=== PATIENT | female | born 1990 | race African-American/Black ===

== ENCOUNTER 2016-11-26 11:28 | Emergency (ER) | payer OTHER ==
[2016-11-26 13:02] LABS: MEAN CORPUSCULAR HEMOGLOBIN 26.8 pg (27.0-33.0); MEAN CORPUSCULAR HGB CONC 32.7 g/dl (32.0-36.5); MEAN CORPUSCULAR VOLUME 81.9 fl (80.0-96.0); RED CELL DISTRIBUTION WIDTH 13.6 % (11.5-14.5); WHITE BLOOD COUNT 13.6 K/mm3 (4.0-10.0)
--- NOTE | 2016-11-26 15:13 | REP ---
EMERGENCY FIRST TRIMESTER OBSTETRIC SONOGRAPHY: HISTORY: Vaginal bleeding. Cramping. No comparison study. FINDINGS: Transabdominal and transvaginal scanning are performed. Uterine dimensions are 9.0 x 4.9 x 5.4 cm. The uterus is retroverted. There is a tiny somewhat elongate 2.8 mm fluid structure in the endometrium. No normal gestational sac is seen. A 2.8 mm mean sac size dimension would correlate with a 7-yedf-9-day gestational age estimate. This is not likely to be a gestational sac. A normal right ovary is seen measuring 3.7 x 2.6 x 2.8 cm. Its Doppler flow is normal with resistive index 0.42. Left ovary measures 3.9 x 2.5 x 3.5 cm. Its Doppler flow is normal with resistive index 0.46. There is a 1.6 x 1.7 x 1.6 cm hemorrhagic corpus luteum cyst in the left ovary. A trace of fluid is seen in the cul-de-sac. No adnexal mass is seen. No sonographic evidence of hemoperitoneum seen. IMPRESSION: Nonspecific sonographic findings: No definite intrauterine gestational sac. No adnexal mass or significant free fluid seen. Clinical and possibly sonographic followup advised. Signed by Cody Aleman MD 11/26/2016 04:32 P
[2016-11-26] MEDS ORDERED: ACETAMINOPHEN 325 MG TAB As Ordered ONE (15:17)
[2016-11-26] MEDS ORDERED: METOCLOPRAMIDE INJ 10MG/2ML VIAL (J2765) As Ordered ONE (15:17)
[2016-11-26 15:39] LABS: ALBUMIN 3.6 GM/DL (3.2-5.2); ALBUMIN/GLOBULIN RATIO 0.82 (1.00-1.93); ALKALINE PHOSPHATASE 80 U/L (45-117); ALT/SGPT 30 U/L (12-78); ANION GAP 9 MEQ/L (8-16); AST/SGOT 18 U/L (15-37); BILIRUBIN,TOTAL 0.3 MG/DL (0.2-1.0); BLOOD UREA NITROGEN 8 MG/DL (7-18); CARBON DIOXIDE LEVEL 25 MEQ/L (21-32); CHLORIDE LEVEL 104 MEQ/L (98-107); CREATININE FOR GFR 0.83 MG/DL (0.55-1.02); GLOMERULAR FILTRATION RATE > 60.0 (>60); GLUCOSE, FASTING 86 MG/DL (70-105); POTASSIUM SERUM 3.8 MEQ/L (3.5-5.1); SODIUM LEVEL 138 MEQ/L (136-145)
[2016-11-26] MEDS ORDERED: NITROFURANTOIN (MACROBID) 100 MG CAP As Ordered ONE (16:58)
--- NOTE | 2016-11-26 17:05 | EDDOCDS ---
Physician Documentation [facility] Name: Saundra Garcia Age: 26 yrs Sex: Female : 1990 Arrival Date: 11/26/2016 Time: 11:28 Bed I4 / M4 Private MD: Madalyn [facility] [place] [facility] [place] Disposition: 11/26/16 16:57 Discharged to Home/Self Care. Impression: Encounter for test, result positive - HCG Serum Quantitative 382, no U/S evidence of , Urinary tract infection, site not specified. - Condition is Stable. - Discharge Instructions: Medicines During , and Urinary Tract Infection. - Prescriptions for Reglan 10 mg Oral Tablet - take 1 tablet by ORAL route every 6 hours take 30 minutes before meals and at bedtime; 20 tablet. Tylenol 325 mg Oral Tablet - take 2 tablets by ORAL route every 6 hours as needed; 30 tablet. Macrobid 100 mg Oral Capsule - take 100 milligram by ORAL route every 12 hours for 10 days; 20 capsule. - Medication Reconciliation, Local Pharmacy Hours form. - Follow up: OB [place]; When: 1 - 2 days; Reason: Further diagnostic work-up, Recheck today's complaints, Continuance of care. Follow up: Emergency Department; Reason: Worsening of conditions. - Problem is new. - Symptoms have improved. Historical: - Allergies: no known allergies; - Home Meds: 1. none - PMHx: none; - PSHx: ; - Social history: Smoking status: Patient states was never smoker of tobacco. No barriers to communication noted, The patient speaks fluent Palestinian, Speaks appropriately for age. - Family history: Not pertinent. - : The pt / caregiver states he / she is not on anticoagulants. Home medication list is obtained from the patient. - Exposure Risk Screening:: None identified. 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 3 in. (160.02 cm); Pain 7/10; 16:59 BP 134 / 70; Pulse 94; Resp 18; Temp 98.7; Pulse Ox 100% ; Pain 0/10; jam1 11:30 Body Mass Index 43.75 (112.04 kg, 160.02 cm) cmb MDM: 11:49 Type & Screen Ordered. EDMS 11:49 Hcg, Serum Quantitative Ordered. EDMS 11:49 CBC Ordered. EDMS 13:43 CBC Reviewed. ef1 13:43 Type & Screen Reviewed. ef1 13:43 Hcg, Serum Quantitative Reviewed. ef1 13:52 IV Saline Lock ordered. ef1 13:52 NS 0.9% 1000 ml IV at bolus once ordered. ef1 13:52 Metoclopramide 10 mg IV at 40 mg/hr once over 15 mins ordered. ef1 13:52 Strep Screen, Nursing ordered. ef1 13:52 Obtain sample by nasopharyngeal swab ordered. ef1 13:52 Acetaminophen Tablet 975 mg PO once ordered. ef1 13:53 Complete Comphrensive Metabolic Ordered. EDMS 13:53 -Influenza A&B Rapid Antigen - Nose Ordered. EDMS 13:53 UA Ordered. EDMS 13:53 Urine Culture Ordered. EDMS 13:59 -Blood Culture (Adults Only), peripheral from different site, or from device/port/PICC ef1 etc. if present ordered. 14:00 Lactic Acid (Squires tube on ice) Ordered. EDMS 14:00 -Blood Culture Ordered. EDMS 14:00 Ultrasound 1st Trimester Ordered. EDMS 14:09 BLOOD CULTURES Ordered. EDMS 14:44 TRANSVAGINAL US Ordered. EDMS 14:44 DUPLEX SCAN LIMITED (DOPPLER) Ordered. EDMS 15:12 -Blood Culture (Adults Only), peripheral from different site, or from device/port/PICC srm etc. if present complete. 15:14 UA Reviewed. ef1 15:14 Type & Screen Reviewed. ef1 15:14 GATS (NEGATIVE STREP SCREEN) Ordered. EDMS 16:01 Financial registration complete. zo 16:16 [facility] [place] Payment Agreement was scanned into [employer] and attached to record. zo 16:53 Complete Comphrensive Metabolic Reviewed. ef1 16:53 -Influenza A&B Rapid Antigen - Nose Reviewed. ef1 16:53 Lactic Acid (Squires tube on ice) Reviewed. ef1 16:53 Ultrasound 1st Trimester Reviewed. ef1 16:54 Nitrofurantoin 100 mg PO once ordered. ef1 Administered Medications: 15:22 Drug: Metoclopramide 10 mg [metoclopramide 5 mg/mL injection solution] Route: IV; Rate: srm 40 mg/hr; Infused Over: 15 mins; Site: right antecubital; 15:49 Follow up: IV Status: Completed infusion ms18 15:22 Drug: Acetaminophen 975 mg [acetaminophen 325 mg tablet (3 tabs)] Route: PO; srm 15:23 Drug: NS 0.9% 1000 ml [sodium chloride 0.9 % intravenous solution] Route: IV; Rate: srm bolus; Site: right antecubital; 17:02 Drug: Nitrofurantoin 100 mg [nitrofurantoin macrocrystal 50 mg capsule (2 caps)] Route: srm PO; Signatures: Dispatcher [employer] EDMS Lbira Amanda RN RN srm Chela Jean Baptiste Erica, PA-C PA-C ef1 Susan Cadena RN RN ead Smith, Mallory RN ms18 The chart was reviewed and I authenticate all verbal orders and agree with the evaluation and treatment provided.Corrections: (The following items were deleted from the chart) 14:02 13:53 US PELVIC NON-OB COMPLETE+US ordered. EDMS EDMS 14:02 13:53 DUPLEX SCAN LIMITED (DOPPLER)+US ordered. EDMS EDMS Attachments: 16:16 [facility] [place] Payment Agreement zo MTDD
--- NOTE | 2016-11-26 17:05 | EDDOCDS ---
Nurse's Notes [facility] Name: Saundra Garcia Age: 26 yrs Sex: Female : 1990 Arrival Date: 11/26/2016 Time: 11:28 Bed I4 / M4 Private MD: MEREDITH Bergman Diagnosis: Encounter for test, result positive-HCG Serum Quantitative 382, no U/S evidence of ;Urinary tract infection, site not specified Presentation: 11/26 11:38 Presenting complaint: Patient states: Pt reports she just found out she is 8 weeks ead on Friday. Reports onset of spotting at 0630 this morning. Pt reports upper abdominal pain. Risk factors: The patient reports no loss of conciousness prior to arrival. This patient has not had a hysterectomy. This patient has not begun menopause. Adult Sepsis Screening: The patient does not have new or worsening altered mentation. Patient's respiratory rate is less than 22. Systolic blood pressure is greater than 100. Patient has a qSOFA score of 0- Negative Sepsis Screen. Suicide/Homicide risk assessment- the patient denies having any suicidal and/or homicidal ideations and does not present with any other emotional, behavioral or mental health complaints. Status: The patient is a dependent. Transition of care: patient was not received from another setting of care. 11:38 Acuity: CECILY Level 3 ead 11:38 Method Of Arrival: Walkin/Carried/Asstd ead Triage Assessment: 11:39 General: Appears in no apparent distress, comfortable, Behavior is appropriate for age, ead cooperative. Pain: Location: epigastric area and suprapubic area. Neurological: No deficits noted. Respiratory: Airway is patent Respiratory effort is even, unlabored. GI: Reports lower abdominal pain, upper abd pain, Denies nausea, vomiting. : Reports vaginal bleeding that is spotty since 0630 this morning. Derm: Skin is dry, Skin is normal. 11:41 Pt Declines HIV testing. 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 none - PMHx: none; - PSHx: ; - Social history: Smoking status: Patient states was never smoker of tobacco. No barriers to communication noted, The patient speaks fluent Lao, Speaks appropriately for age. - Family history: Not pertinent. - : The pt / caregiver states he / she is not on anticoagulants. Home medication list is obtained from the patient. - Exposure Risk Screening:: None identified. Screenin:23 Screening information is obtained from the patient. Fall risk: No risks identified. srm Assistance ADL's: requires no assistance with activities of daily living. Abuse/DV Screen: The patient / caregiver reports he/she is: not in a situation that causes fear, pain or injury. Nutritional screening: No deficits noted. Advance Directives: There is no active DNR order. home support is adequate. Assessment: 15:23 General: Appears in no apparent distress, Behavior is appropriate for age, cooperative. srm Neurological: No deficits noted. EENT: No deficits noted. Respiratory: No deficits noted. : Reports vaginal bleeding that is spotty. Derm: No deficits noted. 15:50 General: Appears in no apparent distress, comfortable, obese, Behavior is appropriate ms18 for age, cooperative, quiet, Pt in no acute distress. VSS. PT resting on stretcher with son at this time. Will continue to monitor pt. . Respiratory: No deficits noted. Derm: Skin is pink, warm & dry. normal. 17:03 General: Appears in no apparent distress, Behavior is appropriate for age, cooperative. srm Neurological: No deficits noted. EENT: No deficits noted. Cardiovascular: No deficits noted. Respiratory: No deficits noted. GI: No deficits noted. Musculoskeletal: No deficits noted. Vital Signs: 11:30 BP 155 / 73; Pulse 115; Resp 18; Temp 99.2(O); Pulse Ox 98% ; Weight 112.04 kg (M); cmb Height 5 ft. 3 in. (160.02 cm); Pain 7/10; 16:59 BP 134 / 70; Pulse 94; Resp 18; Temp 98.7; Pulse Ox 100% ; Pain 0/10; jam1 11:30 Body Mass Index 43.75 (112.04 kg, 160.02 cm) cmb Vitals: 11:30 Log In Time: November 26, 2016 at 11:28. cmb 15:13 Strep Screen is obtained and tested: Negative, a GATSNEG culture is ordered in [facility] and sent. ED Course: 11:29 Patient visited by Susanna Fisher. cmb 11:29 Patient moved to Waiting cmb 11:30 Madalyn [facility] [place] is Private Physician. cmb 11:31 Patient moved to Pre RCE cmb 11:39 Triage Initiated ead 12:46 Patient moved to Triage 3 ct3 12:52 CBC Sent. ct3 12:52 Hcg, Serum Quantitative Sent. ct3 12:52 Type & Screen Sent. ct3 13:38 Jazmin Stallworth PA-C is PHCP. ef1 13:38 Beatrice Fall MD is Attending Physician. ef1 13:39 Patient visited by Jazmin Stallworth PA-C. ef1 13:56 Patient moved to I4 / M4 ead 13:57 Patient visited by Jazmin Stallworth PA-C. ef1 14:18 Patient moved to Ultrasound br3 14:41 Patient moved to I4 / M4 br3 15:01 Patient visited by Jazmin Stallworth PA-C. ef1 15:06 Pt greeted and oriented to ED. Patient advised of names of staff involved in care, jam1 location of call ring, wait times and NPO status. Patient has correct armband on for positive identification. Bed in low position. Call light in reach. Side rails up X 1. Door closed. 15:12 BLOOD CULTURES Sent. srm 15:12 Lactic Acid (Squires tube on ice) Sent. srm 15:12 -Blood Culture Sent. srm 15:12 -Influenza A&B Rapid Antigen - Nose Sent. srm 15:12 Complete Comphrensive Metabolic Sent. srm 15:13 The patient / caregiver is instructed regarding the plan of care and ED course. srm Accompanied by Family Member, Patient has correct armband on for positive identification. Bed in low position. Call light in reach. 15:13 Inserted saline lock: 20 gauge in right antecubital area and blood collected. srm 15:14 Patient visited by Jazmin Stallworth PA-C. ef1 15:24 Patient visited by Libra Amanda, ZOYA. srm 15:49 Patient visited by Bhavana Romo,ZOYA. ms18 15:52 Ultrasound 1st Trimester Returned. EDMS 16:16 [facility] Payment Agreement was scanned into [employer] and attached to record. zo 16:21 Patient name changed from Lakresha\S\\S\Miles\S\ to Ajresha\S\ \S\Miles. EDMS 16:45 Patient visited by Bhavana Romo RN. ms18 16:57 Jesse Gomez, OB is Referral Physician. ef1 17:03 Discontinued lock intact, bleeding controlled, pressure dressing applied, No srm redness/swelling at site. No procedures done that require assistance. Administered Medications: 15:22 Drug: Metoclopramide 10 mg [metoclopramide 5 mg/mL injection solution] Route: IV; Rate: srm 40 mg/hr; Infused Over: 15 mins; Site: right antecubital; 15:49 Follow up: IV Status: Completed infusion ms18 15:22 Drug: Acetaminophen 975 mg [acetaminophen 325 mg tablet (3 tabs)] Route: PO; srm 15:23 Drug: NS 0.9% 1000 ml [sodium chloride 0.9 % intravenous solution] Route: IV; Rate: srm bolus; Site: right antecubital; 17:02 Drug: Nitrofurantoin 100 mg [nitrofurantoin macrocrystal 50 mg capsule (2 caps)] Route: srm PO; Intake: 17:03 IV: 1000.00ml (NS); Total: 1000.00ml. srm Order Results: Lab Order: Type & Screen; SPEC'M 11/26/16 12:52 Test: BLOOD TYPE; Value: AB POS; Status: F Test: AB SCREEN (INDIRECT CARLEY)GEL; Value: NEGATIVE; Status: F Lab Order: Hcg, Serum Quantitative; SPEC'M 11/26/16 12:52 Test: HCG, SERUM QUANTITATIVE; Value: 382; Units: MIU/ML; Status: F Test Note: ; GESTATIONAL AGE APPROXIMATE HCG RANGE (MIU/ML) 0.2-1 WEEK 5-50 1-2 WEEKS 50-500 2-3 WEEKS 100-5,000 3-4 WEEKS 500-10,000 4-5 WEEKS 1,000-50,000 5-6 WEEKS 10,000-100,000 6-8 WEEKS 15,000-200,000 2-3 MONTHS 10,000-100,000 NON FEMALES LESS THAN 3.0 Patient samples may contain human heterophilic antibodies that could react with immunoassays to give falsely elevated or depressed results. This assay has been designed to minimize interference from heterophilic antibodies. Elevated hCG levels have also been associated with trophoblastic disease and nontrophoblastic neoplasms. The possibility of having these diseases should be considered before a diagnosis of is made. This test is not intended for use as a surrogate marker for aiding in the diagnosis or monitoring the treatment of cancer patients. [employer] [place] methodology. Lab Order: CBC; SPEC'M 11/26/16 12:52 Test: WHITE BLOOD COUNT; Value: 13.6; Range: 4.0-10.0; Abnormal: Above high normal; Units: K/mm3; Status: F Test: RED BLOOD COUNT; Value: 4.74; Range: 4.00-5.40; Units: M/mm3; Status: F Test: HEMOGLOBIN; Value: 12.7; Range: 12.0-16.0; Units: g/dl; Status: F Test: HEMATOCRIT; Value: 38.8; Range: 36.0-47.0; Units: %; Status: F Test: MEAN CORPUSCULAR VOLUME; Value: 81.9; Range: 80.0-96.0; Units: fl; Status: F Test: MEAN CORPUSCULAR HEMOGLOBIN; Value: 26.8; Range: 27.0-33.0; Abnormal: Below low normal; Units: pg; Status: F Test: MEAN CORPUSCULAR HGB CONC; Value: 32.7; Range: 32.0-36.5; Units: g/dl; Status: F Test: RED CELL DISTRIBUTION WIDTH; Value: 13.6; Range: 11.5-14.5; Units: %; Status: F Test: PLATELET COUNT, AUTOMATED; Value: 307; Range: 150-450; Units: k/mm3; Status: F Lab Order: Complete Comphrensive Metabolic; SPEC'M 11/26/16 15:04 Test: GLUCOSE, FASTING; Value: 86; Range: 70-105; Units: MG/DL; Status: F Test: BLOOD UREA NITROGEN; Value: 8; Range: 7-18; Units: MG/DL; Status: F Test: CREATININE FOR GFR; Value: 0.83; Range: 0.55-1.02; Units: MG/DL; Status: F Test: GLOMERULAR FILTRATION RATE; Value: > 60.0; Range: >60; Status: F Test: SODIUM LEVEL; Value: 138; Range: 136-145; Units: MEQ/L; Status: F Test: POTASSIUM SERUM; Value: 3.8; Range: 3.5-5.1; Units: MEQ/L; Status: F Test: CHLORIDE LEVEL; Value: 104; Range: 98-107; Units: MEQ/L; Status: F Test: CARBON DIOXIDE LEVEL; Value: 25; Range: 21-32; Units: MEQ/L; Status: F Test: ANION GAP; Value: 9; Range: 8-16; Units: MEQ/L; Status: F Test: CALCIUM LEVEL; Value: 9.0; Range: 8.5-10.1; Units: MG/DL; Status: F Test: AST/SGOT; Value: 18; Range: 15-37; Units: U/L; Status: F Test: ALT/SGPT; Value: 30; Range: 12-78; Units: U/L; Status: F Test: ALKALINE PHOSPHATASE; Value: 80; Range: 45-117; Units: U/L; Status: F Test: BILIRUBIN,TOTAL; Value: 0.3; Range: 0.2-1.0; Units: MG/DL; Status: F Test: TOTAL PROTEIN; Value: 8.0; Range: 6.4-8.2; Units: GM/DL; Status: F Test: ALBUMIN; Value: 3.6; Range: 3.2-5.2; Units: GM/DL; Status: F Test: ALBUMIN/GLOBULIN RATIO; Value: 0.82; Range: 1.00-1.93; Abnormal: Below low normal; Status: F Test Note: ; Units are mL/min/1.73 m2 Chronic Kidney Disease Staging per NKF: Stage I & II GFR >=60 Normal to Mildly Decreased Stage III GFR 30-59 Moderately Decreased Stage IV GFR 15-29 Severely Decreased Stage V GFR <15 Very Little GFR Left ESRD GFR <15 on TRAINING AND DEVELOPMENT OFFICER Lab Order: -Influenza A&B Rapid Antigen - Nose; SPEC'M 11/26/16 15:04 Test: INFLUENZA A RAPID SCR by ICA; Value: INFLUENZA A RESULTS NEGATIVE; Status: F Test: INFLUENZA A RAPID SCR by ICA; Value: Comments:; Status: F Test: INFLUENZA B RAPID SCR by ICA; Value: INFLUENZA B RESULTS NEGATIVE; Status: F Test Note: ; The Influenza test is a direct rapid immunoassay for the qualitative detection of Influenza viral antigen. Cell culture (Viral Culture) testing should be considered to confirm NEGATIVE results and to assist in detecting other viruses that can provide similar clinical symptoms. Please contact the lab within 24 hours [phone]) if confirmatory testing is desired. Lab Order: UA; SPEC'M 11/26/16 13:55 Test: APPEARANCE, URINE; Value: CLEAR; Range: CLEAR; Status: F Test: COLOR, URINE; Value: YELLOW; Range: YELLOW; Status: F Test: PH,URINE; Value: 5.0; Range: 5.0-9.0; Units: UNITS; Status: F Test: SPECIFIC GRAVITY URINE AUTO; Value: 1.017; Range: 1.002-1.035; Status: F Test: PROTEIN, URINE AUTO; Value: NEGATIVE; Range: NEGATIVE; Units: mg/dL; Status: F Test: GLUCOSE, URINE (UA) AUTO; Value: NEGATIVE; Range: NEGATIVE; Units: mg/dL; Status: F Test: KETONE, URINE AUTO; Value: NEGATIVE; Range: NEGATIVE; Units: mg/dL; Status: F Test: UROBILINOGEN, URINE AUTO; Value: 0.2; Range: 0.0-2.0; Units: mg/dL; Status: F Test: BILIRUBIN, URINE AUTO; Value: NEGATIVE; Range: NEGATIVE; Status: F Test: NITRITE, URINE AUTO; Value: POSITIVE; Range: NEGATIVE; Status: F Test: LEUKOCYTE ESTERASE, URINE AUTO; Value: 3+; Range: NEGATIVE; Abnormal: Above high normal; Status: F Test: BLOOD, URINE BLOOD; Value: 1+; Range: NEGATIVE; Abnormal: Above high normal; Status: F Test: WBC, URINE AUTO; Value: 6; Range: 0-3; Abnormal: Above high normal; Units: /HPF; Status: F Test: RBC, URINE AUTO; Value: 3; Range: 0-3; Units: /HPF; Status: F Test: BACTERIA, URINE AUTO; Value: 1+; Range: NEGATIVE; Abnormal: Above high normal; Status: F Test: SQUAMOUS EPITHELIAL CELL UR AU; Value: 4; Range: 0-6; Units: /HPF; Status: F Test: MUCUS, URINE; Value: SMALL; Range: NEGATIVE; Status: F Test: HYALINE CAST, URINE AUTO; Value: 0; Range: 0-1; Units: /LPF; Status: F Test: AMORPHOUS SEDIMENT; Value: SMALL; Range: NEGATIVE; Abnormal: Above high normal; Status: F Lab Order: Lactic Acid (Squires tube on ice); SPEC'M 11/26/16 15:04 Test: LACTIC ACID LEVEL, LACTATE; Value: 1.5; Range: 0.4-2.0; Units: MMOL/L; Status: F Radiology Order: Ultrasound 1st Trimester Test: Ultrasound 1st Trimester REASON FOR EXAMINATION: Bleeding; EMERGENCY FIRST TRIMESTER OBSTETRIC SONOGRAPHY:; ; HISTORY: Vaginal bleeding. Cramping.; ; No comparison study.; ; FINDINGS: Transabdominal and transvaginal scanning are performed. Uterine; dimensions are 9.0 x 4.9 x 5.4 cm. The uterus is retroverted. There is a tiny; somewhat elongate 2.8 mm fluid structure in the endometrium. No normal; gestational sac is seen. A 2.8 mm mean sac size dimension would correlate with; a 7-isso-4-day gestational age estimate. This is not likely to be a gestational; sac.; ; A normal right ovary is seen measuring 3.7 x 2.6 x 2.8 cm. Its Doppler flow is; normal with resistive index 0.42. Left ovary measures 3.9 x 2.5 x 3.5 cm. Its; Doppler flow is normal with resistive index 0.46. There is a 1.6 x 1.7 x 1.6 cm; hemorrhagic corpus luteum cyst in the left ovary. A trace of fluid is seen in; the cul-de-sac. No adnexal mass is seen. No sonographic evidence of; hemoperitoneum seen.; ; IMPRESSION: Nonspecific sonographic findings: No definite intrauterine; gestational sac. No adnexal mass or significant free fluid seen. Clinical and; possibly sonographic followup advised.; ; ; Signed by; Cody Aleman MD 11/26/2016 04:32 P; Outcome: 16:57 Discharge ordered by Provider. ef1 17:03 Discharge Assessment: Patient awake, alert and oriented x 3. No cognitive and/or srm functional deficits noted. Patient verbalized understanding of disposition instructions. patient administered narcotics - no. The following High Risk Discharge criteria are identified: None. Discharged to home ambulatory. Condition: good Condition: stable. Discharge instructions given to patient, Instructed on discharge instructions, follow up and referral plans. medication usage, Demonstrated understanding of instructions, medications, Pt was receptive of discharge instructions/ teaching. Prescriptions given X 3. Ultrasound Study completed. Property :Personal belongings accompany Pt. 17:04 Patient left the ED. srm Signatures: Dispatcher [employer] EDMS Libra Amanda, RN RN srm Kelsea Nick, TEST ENG TEST ENG jam1 Chela Jean Baptiste Erica, PA-C PA-C ef1 Radha Kaminski br3 Ally Dunbar, TEST ENG TEST ENG ct3 Susanna Fisher EmilyRN RN Bhavana Car RN RN ms18 [place]
--- NOTE | 2016-11-26 17:06 | EDDOCDS ---
Physician Documentation [facility] Name: Saundra Garcia Age: 26 yrs Sex: Female : 1990 Arrival Date: 11/26/2016 Time: 11:28 Bed I4 / M4 Private MD: Madal[facility] [place] Disposition: 11/26/16 16:57 Discharged to Home/Self Care. Impression: Encounter for test, result positive - HCG Serum Quantitative 382, no U/S evidence of , Urinary tract infection, site not specified, Other abnormal uterine and vaginal bleeding - Spotting. - Condition is Stable. - Discharge Instructions: Medicines During , and Urinary Tract Infection. - Prescriptions for Reglan 10 mg Oral Tablet - take 1 tablet by ORAL route every 6 hours take 30 minutes before meals and at bedtime; 20 tablet. Tylenol 325 mg Oral Tablet - take 2 tablets by ORAL route every 6 hours as needed; 30 tablet. Macrobid 100 mg Oral Capsule - take 100 milligram by ORAL route every 12 hours for 10 days; 20 capsule. - Medication Reconciliation, Local Pharmacy Hours form. - Follow up: [facility] [place]; When: 1 - 2 days; Reason: Further diagnostic work-up, Recheck today's complaints, Continuance of care. Follow up: Emergency Department; Reason: Worsening of conditions. - Problem is new. - Symptoms have improved. Historical: - Allergies: no known allergies; - Home Meds: 1. none - PMHx: none; - PSHx: ; - Social history: Smoking status: Patient states was never smoker of tobacco. No barriers to communication noted, The patient speaks fluent [place] Citizen, Speaks appropriately for age. - Family history: Not pertinent. - : The pt / caregiver states he / she is not on anticoagulants. Home medication list is obtained from the patient. - Exposure Risk Screening:: None identified. 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 3 in. (160.02 cm); Pain 7/10; 16:59 BP 134 / 70; Pulse 94; Resp 18; Temp 98.7; Pulse Ox 100% ; Pain 0/10; jam1 11:30 Body Mass Index 43.75 (112.04 kg, 160.02 cm) cmb MDM: 11:49 Type & Screen Ordered. EDMS 11:49 Hcg, Serum Quantitative Ordered. EDMS 11:49 CBC Ordered. EDMS 13:43 CBC Reviewed. ef1 13:43 Type & Screen Reviewed. ef1 13:43 Hcg, Serum Quantitative Reviewed. ef1 13:52 IV Saline Lock ordered. ef1 13:52 NS 0.9% 1000 ml IV at bolus once ordered. ef1 13:52 Metoclopramide 10 mg IV at 40 mg/hr once over 15 mins ordered. ef1 13:52 Strep Screen, Nursing ordered. ef1 13:52 Obtain sample by nasopharyngeal swab ordered. ef1 13:52 Acetaminophen Tablet 975 mg PO once ordered. ef1 13:53 Complete Comphrensive Metabolic Ordered. EDMS 13:53 -Influenza A&B Rapid Antigen - Nose Ordered. EDMS 13:53 UA Ordered. EDMS 13:53 Urine Culture Ordered. EDMS 13:59 -Blood Culture (Adults Only), peripheral from different site, or from device/port/PICC ef1 etc. if present ordered. 14:00 Lactic Acid (Squires tube on ice) Ordered. EDMS 14:00 -Blood Culture Ordered. EDMS 14:00 Ultrasound 1st Trimester Ordered. EDMS 14:09 BLOOD CULTURES Ordered. EDMS 14:44 TRANSVAGINAL US Ordered. EDMS 14:44 DUPLEX SCAN LIMITED (DOPPLER) Ordered. EDMS 15:12 -Blood Culture (Adults Only), peripheral from different site, or from device/port/PICC srm etc. if present complete. 15:14 UA Reviewed. ef1 15:14 Type & Screen Reviewed. ef1 15:14 GATS (NEGATIVE STREP SCREEN) Ordered. EDMS 16:01 Financial registration complete. zo 16:16 [facility] [place] Agreement was scanned into [email or web address] and attached to record. zo 16:53 Complete Comphrensive Metabolic Reviewed. ef1 16:53 -Influenza A&B Rapid Antigen - Nose Reviewed. ef1 16:53 Lactic Acid (Squires tube on ice) Reviewed. ef1 16:53 Ultrasound 1st Trimester Reviewed. ef1 16:54 Nitrofurantoin 100 mg PO once ordered. ef1 Administered Medications: 15:22 Drug: Metoclopramide 10 mg [metoclopramide 5 mg/mL injection solution] Route: IV; Rate: srm 40 mg/hr; Infused Over: 15 mins; Site: right antecubital; 15:49 Follow up: IV Status: Completed infusion ms18 15:22 Drug: Acetaminophen 975 mg [acetaminophen 325 mg tablet (3 tabs)] Route: PO; srm 15:23 Drug: NS 0.9% 1000 ml [sodium chloride 0.9 % intravenous solution] Route: IV; Rate: srm bolus; Site: right antecubital; 17:05 Follow up: IV Status: Completed infusion srm 17:02 Drug: Nitrofurantoin 100 mg [nitrofurantoin macrocrystal 50 mg capsule (2 caps)] Route: srm PO; Signatures: Dispatcher [employer] EDMS Libra Amanda RN RN srm [place], Jazmin Villa, PA-C PA-C ef1 Susan Cadena RN RN ead Smith, Mallory RN ms18 The chart was reviewed and I authenticate all verbal orders and agree with the evaluation and treatment provided.Corrections: (The following items were deleted from the chart) 14:02 13:53 US PELVIC NON-OB COMPLETE+US ordered. EDMS EDMS 14:02 13:53 DUPLEX SCAN LIMITED (DOPPLER)+US ordered. EDMS EDMS Attachments: 16:16 [facility] Payment Agreement zo MTDD
--- NOTE | 2016-11-26 17:06 | EDDOCDS ---
Nurse's Notes [facility] Name: Saundra Garcia Age: 26 yrs Sex: Female : 1990 Arrival Date: 11/26/2016 Time: 11:28 Bed I4 / M4 Private MD: MEREDITH Bergman Diagnosis: Encounter for test, result positive-HCG Serum Quantitative 382, no U/S evidence of ;Urinary tract infection, site not specified;Other abnormal uterine and vaginal bleeding-Spotting Presentation: 11/26 11:38 Presenting complaint: Patient states: Pt reports she just found out she is 8 weeks ead on Friday. Reports onset of spotting at 0630 this morning. Pt reports upper abdominal pain. Risk factors: The patient reports no loss of conciousness prior to arrival. This patient has not had a hysterectomy. This patient has not begun menopause. Adult Sepsis Screening: The patient does not have new or worsening altered mentation. Patient's respiratory rate is less than 22. Systolic blood pressure is greater than 100. Patient has a qSOFA score of 0- Negative Sepsis Screen. Suicide/Homicide risk assessment- the patient denies having any suicidal and/or homicidal ideations and does not present with any other emotional, behavioral or mental health complaints. Status: The patient is a dependent. Transition of care: patient was not received from another setting of care. 11:38 Acuity: CECILY Level 3 ead 11:38 Method Of Arrival: Walkin/Carried/Asstd ead Triage Assessment: 11:39 General: Appears in no apparent distress, comfortable, Behavior is appropriate for age, ead cooperative. Pain: Location: epigastric area and suprapubic area. Neurological: No deficits noted. Respiratory: Airway is patent Respiratory effort is even, unlabored. GI: Reports lower abdominal pain, upper abd pain, Denies nausea, vomiting. : Reports vaginal bleeding that is spotty since 0630 this morning. Derm: Skin is dry, Skin is normal. 11:41 Pt Declines HIV testing. ead CONVICT GUARD: 11:39 2, Full Term 1, Living 1, LMP 09/27/2016 ead Historical: - Allergies: no known allergies; - Home Meds: 1. none - PMHx: none; - PSHx: ; - Social history: Smoking status: Patient states was never smoker of tobacco. No barriers to communication noted, The patient speaks fluent [place]ic, Speaks appropriately for age. - Family history: Not pertinent. - : The pt / caregiver states he / she is not on anticoagulants. Home medication list is obtained from the patient. - Exposure Risk Screening:: None identified. Screenin:23 Screening information is obtained from the patient. Fall risk: No risks identified. srm Assistance ADL's: requires no assistance with activities of daily living. Abuse/DV Screen: The patient / caregiver reports he/she is: not in a situation that causes fear, pain or injury. Nutritional screening: No deficits noted. Advance Directives: There is no active DNR order. home support is adequate. Assessment: 15:23 General: Appears in no apparent distress, Behavior is appropriate for age, cooperative. srm Neurological: No deficits noted. EENT: No deficits noted. Respiratory: No deficits noted. : Reports vaginal bleeding that is spotty. Derm: No deficits noted. 15:50 General: Appears in no apparent distress, comfortable, obese, Behavior is appropriate ms18 for age, cooperative, quiet, Pt in no acute distress. VSS. PT resting on stretcher with son at this time. Will continue to monitor pt. . Respiratory: No deficits noted. Derm: Skin is pink, warm & dry. normal. 17:03 General: Appears in no apparent distress, Behavior is appropriate for age, cooperative. srm Neurological: No deficits noted. EENT: No deficits noted. Cardiovascular: No deficits noted. Respiratory: No deficits noted. GI: No deficits noted. Musculoskeletal: No deficits noted. Vital Signs: 11:30 BP 155 / 73; Pulse 115; Resp 18; Temp 99.2(O); Pulse Ox 98% ; Weight 112.04 kg (M); cmb Height 5 ft. 3 in. (160.02 cm); Pain 7/10; 16:59 BP 134 / 70; Pulse 94; Resp 18; Temp 98.7; Pulse Ox 100% ; Pain 0/10; jam1 11:30 Body Mass Index 43.75 (112.04 kg, 160.02 cm) cmb Vitals: 11:30 Log In Time: November 26, 2016 at 11:28. cmb 15:13 Strep Screen is obtained and tested: Negative, a GATSNEG culture is ordered in [employer] srm and sent. ED Course: 11:29 Patient visited by Susanna Fisher. cmb 11:29 Patient moved to Waiting cmb 11:30 Madalyn [facility] [place] is Private Physician. cmb 11:31 Patient moved to Pre RCE cmb 11:39 Triage Initiated ead 12:46 Patient moved to Triage 3 ct3 12:52 CBC Sent. ct3 12:52 Hcg, Serum Quantitative Sent. ct3 12:52 Type & Screen Sent. ct3 13:38 Jazmin Stallworth PA-C is PHCP. ef1 13:38 Beatrice Fall MD is Attending Physician. ef1 13:39 Patient visited by Jazmin Stallworth PA-C. ef1 13:56 Patient moved to I4 / M4 ead 13:57 Patient visited by Jazmin Stallworth PA-C. ef1 14:18 Patient moved to Ultrasound br3 14:41 Patient moved to I4 / M4 br3 15:01 Patient visited by Jazmin Stallworth PA-C. ef1 15:06 Pt greeted and oriented to ED. Patient advised of names of staff involved in care, jam1 location of call ring, wait times and NPO status. Patient has correct armband on for positive identification. Bed in low position. Call light in reach. Side rails up X 1. Door closed. 15:12 BLOOD CULTURES Sent. srm 15:12 Lactic Acid (Squires tube on ice) Sent. srm 15:12 -Blood Culture Sent. srm 15:12 -Influenza A&B Rapid Antigen - Nose Sent. srm 15:12 Complete Comphrensive Metabolic Sent. srm 15:13 The patient / caregiver is instructed regarding the plan of care and ED course. srm Accompanied by Family Member, Patient has correct armband on for positive identification. Bed in low position. Call light in reach. 15:13 Inserted saline lock: 20 gauge in right antecubital area and blood collected. srm 15:14 Patient visited by Jazmin Stallworth PA-C. ef1 15:24 Patient visited by Libra Amanda, ZOYA. srm 15:49 Patient visited by Bhavana Romo,ZOYA. ms18 15:52 Ultrasound 1st Trimester Returned. EDMS 16:16 [facility] [place] Agreement was scanned into [employer] and attached to record. zo 16:21 Patient name changed from Lakresha\S\\S\Miles\S\ to Saundra\S\ \S\Miles. EDMS 16:45 Patient visited by Bhavana Romo RN. ms18 16:57 [place], OB is Referral Physician. ef1 17:03 Discontinued lock intact, bleeding controlled, pressure dressing applied, No srm redness/swelling at site. No procedures done that require assistance. Administered Medications: 15:22 Drug: Metoclopramide 10 mg [metoclopramide 5 mg/mL injection solution] Route: IV; Rate: srm 40 mg/hr; Infused Over: 15 mins; Site: right antecubital; 15:49 Follow up: IV Status: Completed infusion ms18 15:22 Drug: Acetaminophen 975 mg [acetaminophen 325 mg tablet (3 tabs)] Route: PO; srm 15:23 Drug: NS 0.9% 1000 ml [sodium chloride 0.9 % intravenous solution] Route: IV; Rate: srm bolus; Site: right antecubital; 17:05 Follow up: IV Status: Completed infusion srm 17:02 Drug: Nitrofurantoin 100 mg [nitrofurantoin macrocrystal 50 mg capsule (2 caps)] Route: srm PO; Intake: 17:03 IV: 1000.00ml (NS); Total: 1000.00ml. srm Order Results: Lab Order: Type & Screen; SPEC'M 11/26/16 12:52 Test: BLOOD TYPE; Value: AB POS; Status: F Test: AB SCREEN (INDIRECT CARLEY)GEL; Value: NEGATIVE; Status: F Lab Order: Hcg, Serum Quantitative; SPEC'M 11/26/16 12:52 Test: HCG, SERUM QUANTITATIVE; Value: 382; Units: MIU/ML; Status: F Test Note: ; GESTATIONAL AGE APPROXIMATE HCG RANGE (MIU/ML) 0.2-1 WEEK 5-50 1-2 WEEKS 50-500 2-3 WEEKS 100-5,000 3-4 WEEKS 500-10,000 4-5 WEEKS 1,000-50,000 5-6 WEEKS 10,000-100,000 6-8 WEEKS 15,000-200,000 2-3 MONTHS 10,000-100,000 NON FEMALES LESS THAN 3.0 Patient samples may contain human heterophilic antibodies that could react with immunoassays to give falsely elevated or depressed results. This assay has been designed to minimize interference from heterophilic antibodies. Elevated hCG levels have also been associated with trophoblastic disease and nontrophoblastic neoplasms. The possibility of having these diseases should be considered before a diagnosis of is made. This test is not intended for use as a surrogate marker for aiding in the diagnosis or monitoring the treatment of cancer patients. Siemens RuiYi methodology. Lab Order: CBC; SPEC'11/26/16 12:52 Test: WHITE BLOOD COUNT; Value: 13.6; Range: 4.0-10.0; Abnormal: Above high normal; Units: K/mm3; Status: F Test: RED BLOOD COUNT; Value: 4.74; Range: 4.00-5.40; Units: M/mm3; Status: F Test: HEMOGLOBIN; Value: 12.7; Range: 12.0-16.0; Units: g/dl; Status: F Test: HEMATOCRIT; Value: 38.8; Range: 36.0-47.0; Units: %; Status: F Test: MEAN CORPUSCULAR VOLUME; Value: 81.9; Range: 80.0-96.0; Units: fl; Status: F Test: MEAN CORPUSCULAR HEMOGLOBIN; Value: 26.8; Range: 27.0-33.0; Abnormal: Below low normal; Units: pg; Status: F Test: MEAN CORPUSCULAR HGB CONC; Value: 32.7; Range: 32.0-36.5; Units: g/dl; Status: F Test: RED CELL DISTRIBUTION WIDTH; Value: 13.6; Range: 11.5-14.5; Units: %; Status: F Test: PLATELET COUNT, AUTOMATED; Value: 307; Range: 150-450; Units: k/mm3; Status: F Lab Order: Complete Comphrensive Metabolic; SPEC11/26/16 15:04 Test: GLUCOSE, FASTING; Value: 86; Range: 70-105; Units: MG/DL; Status: F Test: BLOOD UREA NITROGEN; Value: 8; Range: 7-18; Units: MG/DL; Status: F Test: CREATININE FOR GFR; Value: 0.83; Range: 0.55-1.02; Units: MG/DL; Status: F Test: GLOMERULAR FILTRATION RATE; Value: > 60.0; Range: >60; Status: F Test: SODIUM LEVEL; Value: 138; Range: 136-145; Units: MEQ/L; Status: F Test: POTASSIUM SERUM; Value: 3.8; Range: 3.5-5.1; Units: MEQ/L; Status: F Test: CHLORIDE LEVEL; Value: 104; Range: 98-107; Units: MEQ/L; Status: F Test: CARBON DIOXIDE LEVEL; Value: 25; Range: 21-32; Units: MEQ/L; Status: F Test: ANION GAP; Value: 9; Range: 8-16; Units: MEQ/L; Status: F Test: CALCIUM LEVEL; Value: 9.0; Range: 8.5-10.1; Units: MG/DL; Status: F Test: AST/SGOT; Value: 18; Range: 15-37; Units: U/L; Status: F Test: ALT/SGPT; Value: 30; Range: 12-78; Units: U/L; Status: F Test: ALKALINE PHOSPHATASE; Value: 80; Range: 45-117; Units: U/L; Status: F Test: BILIRUBIN,TOTAL; Value: 0.3; Range: 0.2-1.0; Units: MG/DL; Status: F Test: TOTAL PROTEIN; Value: 8.0; Range: 6.4-8.2; Units: GM/DL; Status: F Test: ALBUMIN; Value: 3.6; Range: 3.2-5.2; Units: GM/DL; Status: F Test: ALBUMIN/GLOBULIN RATIO; Value: 0.82; Range: 1.00-1.93; Abnormal: Below low normal; Status: F Test Note: ; Units are mL/min/1.73 m2 Chronic Kidney Disease Staging per NKF: Stage I & II GFR >=60 Normal to Mildly Decreased Stage III GFR 30-59 Moderately Decreased Stage IV GFR 15-29 Severely Decreased Stage V GFR <15 Very Little GFR Left ESRD GFR <15 on MANAGER RESPIRATORY Lab Order: -Influenza A&B Rapid Antigen - Nose; SPEC'M 11/26/16 15:04 Test: INFLUENZA A RAPID SCR by ICA; Value: INFLUENZA A RESULTS NEGATIVE; Status: F Test: INFLUENZA A RAPID SCR by ICA; Value: Comments:; Status: F Test: INFLUENZA B RAPID SCR by ICA; Value: INFLUENZA B RESULTS NEGATIVE; Status: F Test Note: ; The Influenza test is a direct rapid immunoassay for the qualitative detection of Influenza viral antigen. Cell culture (Viral Culture) testing should be considered to confirm NEGATIVE results and to assist in detecting other viruses that can provide similar clinical symptoms. Please contact the lab within 24 hours ([phone] if confirmatory testing is desired. Lab Order: UA; SPEC'M 11/26/16 13:55 Test: APPEARANCE, URINE; Value: CLEAR; Range: CLEAR; Status: F Test: COLOR, URINE; Value: YELLOW; Range: YELLOW; Status: F Test: PH,URINE; Value: 5.0; Range: 5.0-9.0; Units: UNITS; Status: F Test: SPECIFIC GRAVITY URINE AUTO; Value: 1.017; Range: 1.002-1.035; Status: F Test: PROTEIN, URINE AUTO; Value: NEGATIVE; Range: NEGATIVE; Units: mg/dL; Status: F Test: GLUCOSE, URINE (UA) AUTO; Value: NEGATIVE; Range: NEGATIVE; Units: mg/dL; Status: F Test: KETONE, URINE AUTO; Value: NEGATIVE; Range: NEGATIVE; Units: mg/dL; Status: F Test: UROBILINOGEN, URINE AUTO; Value: 0.2; Range: 0.0-2.0; Units: mg/dL; Status: F Test: BILIRUBIN, URINE AUTO; Value: NEGATIVE; Range: NEGATIVE; Status: F Test: NITRITE, URINE AUTO; Value: POSITIVE; Range: NEGATIVE; Status: F Test: LEUKOCYTE ESTERASE, URINE AUTO; Value: 3+; Range: NEGATIVE; Abnormal: Above high normal; Status: F Test: BLOOD, URINE BLOOD; Value: 1+; Range: NEGATIVE; Abnormal: Above high normal; Status: F Test: WBC, URINE AUTO; Value: 6; Range: 0-3; Abnormal: Above high normal; Units: /HPF; Status: F Test: RBC, URINE AUTO; Value: 3; Range: 0-3; Units: /HPF; Status: F Test: BACTERIA, URINE AUTO; Value: 1+; Range: NEGATIVE; Abnormal: Above high normal; Status: F Test: SQUAMOUS EPITHELIAL CELL UR AU; Value: 4; Range: 0-6; Units: /HPF; Status: F Test: MUCUS, URINE; Value: SMALL; Range: NEGATIVE; Status: F Test: HYALINE CAST, URINE AUTO; Value: 0; Range: 0-1; Units: /LPF; Status: F Test: AMORPHOUS SEDIMENT; Value: SMALL; Range: NEGATIVE; Abnormal: Above high normal; Status: F Lab Order: Lactic Acid (Squires tube on ice); SPEC'M 11/26/16 15:04 Test: LACTIC ACID LEVEL, LACTATE; Value: 1.5; Range: 0.4-2.0; Units: MMOL/L; Status: F Radiology Order: Ultrasound 1st Trimester Test: Ultrasound 1st Trimester REASON FOR EXAMINATION: Bleeding; EMERGENCY FIRST TRIMESTER OBSTETRIC SONOGRAPHY:; ; HISTORY: Vaginal bleeding. Cramping.; ; No comparison study.; ; FINDINGS: Transabdominal and transvaginal scanning are performed. Uterine; dimensions are 9.0 x 4.9 x 5.4 cm. The uterus is retroverted. There is a tiny; somewhat elongate 2.8 mm fluid structure in the endometrium. No normal; gestational sac is seen. A 2.8 mm mean sac size dimension would correlate with; a 2-wuvu-6-day gestational age estimate. This is not likely to be a gestational; sac.; ; A normal right ovary is seen measuring 3.7 x 2.6 x 2.8 cm. Its Doppler flow is; normal with resistive index 0.42. Left ovary measures 3.9 x 2.5 x 3.5 cm. Its; Doppler flow is normal with resistive index 0.46. There is a 1.6 x 1.7 x 1.6 cm; hemorrhagic corpus luteum cyst in the left ovary. A trace of fluid is seen in; the cul-de-sac. No adnexal mass is seen. No sonographic evidence of; hemoperitoneum seen.; ; IMPRESSION: Nonspecific sonographic findings: No definite intrauterine; gestational sac. No adnexal mass or significant free fluid seen. Clinical and; possibly sonographic followup advised.; ; ; Signed by; Cody Aleman MD 11/26/2016 04:32 P; Outcome: 16:57 Discharge ordered by Provider. ef1 17:03 Discharge Assessment: Patient awake, alert and oriented x 3. No cognitive and/or srm functional deficits noted. Patient verbalized understanding of disposition instructions. patient administered narcotics - no. The following High Risk Discharge criteria are identified: None. Discharged to home ambulatory. Condition: good Condition: stable. Discharge instructions given to patient, Instructed on discharge instructions, follow up and referral plans. medication usage, Demonstrated understanding of instructions, medications, Pt was receptive of discharge instructions/ teaching. Prescriptions given X 3. Ultrasound Study completed. Property :Personal belongings accompany Pt. 17:04 Patient left the ED. srm 17:05 Patient left the ED. srm Signatures: Dispatcher [employer] EDMS Libra Amanda, RN RN srm Kelsea Nick, ROUGHER OPERATOR ROUGHER OPERATOR jam1 Chela Jean Baptiste Erica, PA-C PA-C ef1 Radha Kaminski br3 Ally Dunbar, ROUGHER OPERATOR ROUGHER OPERATOR ct3 Susanna Fisher Emily,RN RN Bhavana CarRN RN ms18 [place]
--- NOTE | 2016-11-28 18:07 | EDDOCDS ---
[facility]ation [facility] Name: Saundra Garcia Age: 26 yrs Sex: Female : 1990 Arrival Date: 11/26/2016 Time: 11:28 Bed I4 / M4 Private MD: Madal[place] [facility] [place]position: 11/26/16 16:57 Discharged to Home/Self Care. Impression: Encounter for test, result positive - HCG Serum Quantitative 382, no U/S evidence of , Urinary tract infection, site not specified, Other abnormal uterine and vaginal bleeding - Spotting. - Condition is Stable. - Discharge Instructions: Medicines During , and Urinary Tract Infection. - Prescriptions for Reglan 10 mg Oral Tablet - take 1 tablet by ORAL route every 6 hours take 30 minutes before meals and at bedtime; 20 tablet. Tylenol 325 mg Oral Tablet - take 2 tablets by ORAL route every 6 hours as needed; 30 tablet. Macrobid 100 mg Oral Capsule - take 100 milligram by ORAL route every 12 hours for 10 days; 20 capsule. - Medication Reconciliation, Local Pharmacy Hours form. - Follow up: [facility] [place]; When: 1 - 2 days; Reason: Further diagnostic work-up, Recheck today's complaints, Continuance of care. Follow up: Emergency Department; Reason: Worsening of conditions. - Problem is new. - Symptoms have improved. Historical: - Allergies: no known allergies; - Home Meds: 1. none - PMHx: none; - PSHx: ; - Social history: Smoking status: Patient states was never smoker of tobacco. No barriers to communication noted, The patient speaks fluent Lao, Speaks appropriately for age. - Family history: Not pertinent. - : The pt / caregiver states he / she is not on anticoagulants. Home medication list is obtained from the patient. - Exposure Risk Screening:: None identified. 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 3 in. (160.02 cm); Pain 7/10; 16:59 BP 134 / 70; Pulse 94; Resp 18; Temp 98.7; Pulse Ox 100% ; Pain 0/10; jam1 11:30 Body Mass Index 43.75 (112.04 kg, 160.02 cm) cmb MDM: 11:49 Type & Screen Ordered. EDMS 11:49 Hcg, Serum Quantitative Ordered. EDMS 11:49 CBC Ordered. EDMS 13:43 CBC Reviewed. ef1 13:43 Type & Screen Reviewed. ef1 13:43 Hcg, Serum Quantitative Reviewed. ef1 13:52 IV Saline Lock ordered. ef1 13:52 NS 0.9% 1000 ml IV at bolus once ordered. ef1 13:52 Metoclopramide 10 mg IV at 40 mg/hr once over 15 mins ordered. ef1 13:52 Strep Screen, Nursing ordered. ef1 13:52 Obtain sample by nasopharyngeal swab ordered. ef1 13:52 Acetaminophen Tablet 975 mg PO once ordered. ef1 13:53 Complete Comphrensive Metabolic Ordered. EDMS 13:53 -Influenza A&B Rapid Antigen - Nose Ordered. EDMS 13:53 UA Ordered. EDMS 13:53 Urine Culture Ordered. EDMS 13:59 -Blood Culture (Adults Only), peripheral from different site, or from device/port/PICC ef1 etc. if present ordered. 14:00 Lactic Acid (Squires tube on ice) Ordered. EDMS 14:00 -Blood Culture Ordered. EDMS 14:00 Ultrasound 1st Trimester Ordered. EDMS 14:09 BLOOD CULTURES Ordered. EDMS 14:44 TRANSVAGINAL US Ordered. EDMS 14:44 DUPLEX SCAN LIMITED (DOPPLER) Ordered. EDMS 15:12 -Blood Culture (Adults Only), peripheral from different site, or from device/port/PICC srm etc. if present complete. 15:14 UA Reviewed. ef1 15:14 Type & Screen Reviewed. ef1 15:14 GATS (NEGATIVE STREP SCREEN) Ordered. EDMS 16:01 Financial registration complete. zo 16:16 [facility] [place] into [employer] and attached to record. zo 16:53 Complete Comphrensive Metabolic Reviewed. ef1 16:53 -Influenza A&B Rapid Antigen - Nose Reviewed. ef1 16:53 Lactic Acid (Squires tube on ice) Reviewed. ef1 16:53 Ultrasound 1st Trimester Reviewed. ef1 16:54 Nitrofurantoin 100 mg PO once ordered. ef1 01/25 03:21 T-Sheet-- Draft Copy was scanned into [employer] and attached to record. hs2 10:38 Radiology Report was scanned into [employer] and attached to record. gb 11/28 12:07 Lab / Xray Callback was scanned into [employer] and attached to record. deg Administered Medications: 11/26 15:22 Drug: Metoclopramide 10 mg [metoclopramide 5 mg/mL injection solution] Route: IV; Rate: srm 40 mg/hr; Infused Over: 15 mins; Site: right antecubital; 15:49 Follow up: IV Status: Completed infusion ms18 15:22 Drug: Acetaminophen 975 mg [acetaminophen 325 mg tablet (3 tabs)] Route: PO; srm 15:23 Drug: NS 0.9% 1000 ml [sodium chloride 0.9 % intravenous solution] Route: IV; Rate: srm bolus; Site: right antecubital; 17:05 Follow up: IV Status: Completed infusion srm 17:02 Drug: Nitrofurantoin 100 mg [nitrofurantoin macrocrystal 50 mg capsule (2 caps)] Route: srm PO; Signatures: Dispatcher [employer] EDMS Eva Cid, Insole [place] Unit deg Libra Amanda RN RN srm Nery Venegas, Reg Reg gb Chela Jean Baptiste Erica, PA-C PA-C ef1 Susan Cadena RN RN ead Stanton, Hillary, Reg Reg hs2 Bhavana Romo RN ms18 The chart was reviewed and I authenticate all verbal orders and agree with the evaluation and treatment provided.Corrections: (The following items were deleted from the chart) 14:02 13:53 US PELVIC NON-OB COMPLETE+US ordered. EDMS EDMS 14:02 13:53 DUPLEX SCAN LIMITED (DOPPLER)+US ordered. EDMS EDMS Attachments: 16:16 [facility] [place] zo 11/27 03:21 T-Sheet-- Draft Copy hs2 Chart Complete MTDD
--- NOTE | 2016-11-28 18:07 | EDDOCDS ---
Nurse's Notes [facility] Name: Saundra Garcia Age: 26 yrs Sex: Female : 1990 Arrival Date: 11/26/2016 Time: 11:28 Bed I4 / M4 Private MD: MEREDITH Bergman Diagnosis: Encounter for test, result positive-HCG Serum Quantitative 382, no U/S evidence of ;Urinary tract infection, site not specified;Other abnormal uterine and vaginal bleeding-Spotting Presentation: 11/26 11:38 Presenting complaint: Patient states: Pt reports she just found out she is 8 weeks ead on Friday. Reports onset of spotting at 0630 this morning. Pt reports upper abdominal pain. Risk factors: The patient reports no loss of conciousness prior to arrival. This patient has not had a hysterectomy. This patient has not begun menopause. Adult Sepsis Screening: The patient does not have new or worsening altered mentation. Patient's respiratory rate is less than 22. Systolic blood pressure is greater than 100. Patient has a qSOFA score of 0- Negative Sepsis Screen. Suicide/Homicide risk assessment- the patient denies having any suicidal and/or homicidal ideations and does not present with any other emotional, behavioral or mental health complaints. Status: The patient is a dependent. Transition of care: patient was not received from another setting of care. 11:38 Acuity: CECILY Level 3 ead 11:38 Method Of Arrival: Walkin/Carried/Asstd ead Triage Assessment: 11:39 General: Appears in no apparent distress, comfortable, Behavior is appropriate for age, ead cooperative. Pain: Location: epigastric area and suprapubic area. Neurological: No deficits noted. Respiratory: Airway is patent Respiratory effort is even, unlabored. GI: Reports lower abdominal pain, upper abd pain, Denies nausea, vomiting. : Reports vaginal bleeding that is spotty since 0630 this morning. Derm: Skin is dry, Skin is normal. 11:41 Pt Declines HIV testing. 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 none - PMHx: none; - PSHx: ; - Social history: Smoking status: Patient states was never smoker of tobacco. No barriers to communication noted, The patient speaks fluent Lao, Speaks appropriately for age. - Family history: Not pertinent. - : The pt / caregiver states he / she is not on anticoagulants. Home medication list is obtained from the patient. - Exposure Risk Screening:: None identified. Screenin:23 Screening information is obtained from the patient. Fall risk: No risks identified. srm Assistance ADL's: requires no assistance with activities of daily living. Abuse/DV Screen: The patient / caregiver reports he/she is: not in a situation that causes fear, pain or injury. Nutritional screening: No deficits noted. Advance Directives: There is no active DNR order. home support is adequate. Assessment: 15:23 General: Appears in no apparent distress, Behavior is appropriate for age, cooperative. srm Neurological: No deficits noted. EENT: No deficits noted. Respiratory: No deficits noted. : Reports vaginal bleeding that is spotty. Derm: No deficits noted. 15:50 General: Appears in no apparent distress, comfortable, obese, Behavior is appropriate ms18 for age, cooperative, quiet, Pt in no acute distress. VSS. PT resting on stretcher with son at this time. Will continue to monitor pt. . Respiratory: No deficits noted. Derm: Skin is pink, warm & dry. normal. 17:03 General: Appears in no apparent distress, Behavior is appropriate for age, cooperative. srm Neurological: No deficits noted. EENT: No deficits noted. Cardiovascular: No deficits noted. Respiratory: No deficits noted. GI: No deficits noted. Musculoskeletal: No deficits noted. 11/28 11:45 General: Urine culture results reviewed and pt treated appropriately. mcp Vital Signs: 11/26 11:30 BP 155 / 73; Pulse 115; Resp 18; Temp 99.2(O); Pulse Ox 98% ; Weight 112.04 kg (M); cmb Height 5 ft. 3 in. (160.02 cm); Pain 7/10; 16:59 BP 134 / 70; Pulse 94; Resp 18; Temp 98.7; Pulse Ox 100% ; Pain 0/10; jam1 11:30 Body Mass Index 43.75 (112.04 kg, 160.02 cm) cmb Vitals: 11:30 Log In Time: November 26, 2016 at 11:28. cmb 15:13 Strep Screen is obtained and tested: Negative, a GATSNEG culture is ordered in [facility] and sent. ED Course: 11:29 Patient visited by Susanna Fisher. cmb 11:29 Patient moved to Waiting cmb 11:30 Madalyn [facility] [place] Private Physician. cmb 11:31 Patient moved to Pre RCE cmb 11:39 Triage Initiated ead 12:46 Patient moved to Triage 3 ct3 12:52 CBC Sent. ct3 12:52 Hcg, Serum Quantitative Sent. ct3 12:52 Type & Screen Sent. ct3 13:38 Jaz[facility]allworth [facility]. ef1 13:38 Beatrice Fall MD is Attending Physician. ef1 13:39 Patient visited by Jazmin Stallworth PA-C. ef1 13:56 Patient moved to I4 / M4 ead 13:57 Patient visited by Jazmin Stallworth PA-C. ef1 14:18 Patient moved to Ultrasound br3 14:41 Patient moved to I4 / M4 br3 15:01 Patient visited by Jazmin Stallworth PA-C. ef1 15:06 Pt greeted and oriented to ED. Patient advised of names of staff involved in care, jam1 location of call ring, wait times and NPO status. Patient has correct armband on for positive identification. Bed in low position. Call light in reach. Side rails up X 1. Door closed. 15:12 BLOOD CULTURES Sent. srm 15:12 Lactic Acid (Squires tube on ice) Sent. srm 15:12 -Blood Culture Sent. srm 15:12 -Influenza A&B Rapid Antigen - Nose Sent. srm 15:12 Complete Comphrensive Metabolic Sent. srm 15:13 The patient / caregiver is instructed regarding the plan of care and ED course. srm Accompanied by Family Member, Patient has correct armband on for positive identification. Bed in low position. Call light in reach. 15:13 Inserted saline lock: 20 gauge in right antecubital area and blood collected. srm 15:14 Patient visited by Jazmin Stallworth PA-C. ef1 15:24 Patient visited by Libra Amanda RN. srm 15:49 Patient visited by Bhavana Romo RN. ms18 15:52 Ultrasound 1st Trimester Returned. EDMS 16:16 [facility] [place] Payment Agreement was scanned into [employer] and attached to record. zo 16:21 Patient name changed from Ania\S\\S\Miles\S\ to Ania\S\ \S\Miles. EDMS 16:45 Patient visited by Bhavana Romo RN. ms18 16:57 [place], OB is Referral Physician. ef1 17:03 Discontinued lock intact, bleeding controlled, pressure dressing applied, No srm redness/swelling at site. No procedures done that require assistance. 11/27 03:21 T-Sheet-- Draft Copy was scanned into [employer] and attached to record. hs2 10:38 Radiology Report was scanned into [employer] and attached to record. gb 11/28 12:07 Lab / Xray Callback was scanned into [employer] and attached to record. deg Administered Medications: 11/26 15:22 Drug: Metoclopramide 10 mg [metoclopramide 5 mg/mL injection solution] Route: IV; Rate: srm 40 mg/hr; Infused Over: 15 mins; Site: right antecubital; 15:49 Follow up: IV Status: Completed infusion ms18 15:22 Drug: Acetaminophen 975 mg [acetaminophen 325 mg tablet (3 tabs)] Route: PO; srm 15:23 Drug: NS 0.9% 1000 ml [sodium chloride 0.9 % intravenous solution] Route: IV; Rate: srm bolus; Site: right antecubital; 17:05 Follow up: IV Status: Completed infusion srm 17:02 Drug: Nitrofurantoin 100 mg [nitrofurantoin macrocrystal 50 mg capsule (2 caps)] Route: srm PO; Intake: 17:03 IV: 1000.00ml (NS); Total: 1000.00ml. srm Order Results: Lab Order: Type & Screen; SPEC'M 11/26/16 12:52 Test: BLOOD TYPE; Value: AB POS; Status: F Test: AB SCREEN (INDIRECT CARLEY)GEL; Value: NEGATIVE; Status: F Lab Order: Hcg, Serum Quantitative; SPEC'M 11/26/16 12:52 Test: HCG, SERUM QUANTITATIVE; Value: 382; Units: MIU/ML; Status: F Test Note: ; GESTATIONAL AGE APPROXIMATE HCG RANGE (MIU/ML) 0.2-1 WEEK 5-50 1-2 WEEKS 50-500 2-3 WEEKS 100-5,000 3-4 WEEKS 500-10,000 4-5 WEEKS 1,000-50,000 5-6 WEEKS 10,000-100,000 6-8 WEEKS 15,000-200,000 2-3 MONTHS 10,000-100,000 NON FEMALES LESS THAN 3.0 Patient samples may contain human heterophilic antibodies that could react with immunoassays to give falsely elevated or depressed results. This assay has been designed to minimize interference from heterophilic antibodies. Elevated hCG levels have also been associated with trophoblastic disease and nontrophoblastic neoplasms. The possibility of having these diseases should be considered before a diagnosis of is made. This test is not intended for use as a surrogate marker for aiding in the diagnosis or monitoring the treatment of cancer patients. Siemens Graphicly methodology. Lab Order: CBC; SPEC'M 11/26/16 12:52 Test: WHITE BLOOD COUNT; Value: 13.6; Range: 4.0-10.0; Abnormal: Above high normal; Units: K/mm3; Status: F Test: RED BLOOD COUNT; Value: 4.74; Range: 4.00-5.40; Units: M/mm3; Status: F Test: HEMOGLOBIN; Value: 12.7; Range: 12.0-16.0; Units: g/dl; Status: F Test: HEMATOCRIT; Value: 38.8; Range: 36.0-47.0; Units: %; Status: F Test: MEAN CORPUSCULAR VOLUME; Value: 81.9; Range: 80.0-96.0; Units: fl; Status: F Test: MEAN CORPUSCULAR HEMOGLOBIN; Value: 26.8; Range: 27.0-33.0; Abnormal: Below low normal; Units: pg; Status: F Test: MEAN CORPUSCULAR HGB CONC; Value: 32.7; Range: 32.0-36.5; Units: g/dl; Status: F Test: RED CELL DISTRIBUTION WIDTH; Value: 13.6; Range: 11.5-14.5; Units: %; Status: F Test: PLATELET COUNT, AUTOMATED; Value: 307; Range: 150-450; Units: k/mm3; Status: F Lab Order: Complete Comphrensive Metabolic; SPEC'M 11/26/16 15:04 Test: GLUCOSE, FASTING; Value: 86; Range: 70-105; Units: MG/DL; Status: F Test: BLOOD UREA NITROGEN; Value: 8; Range: 7-18; Units: MG/DL; Status: F Test: CREATININE FOR GFR; Value: 0.83; Range: 0.55-1.02; Units: MG/DL; Status: F Test: GLOMERULAR FILTRATION RATE; Value: > 60.0; Range: >60; Status: F Test: SODIUM LEVEL; Value: 138; Range: 136-145; Units: MEQ/L; Status: F Test: POTASSIUM SERUM; Value: 3.8; Range: 3.5-5.1; Units: MEQ/L; Status: F Test: CHLORIDE LEVEL; Value: 104; Range: 98-107; Units: MEQ/L; Status: F Test: CARBON DIOXIDE LEVEL; Value: 25; Range: 21-32; Units: MEQ/L; Status: F Test: ANION GAP; Value: 9; Range: 8-16; Units: MEQ/L; Status: F Test: CALCIUM LEVEL; Value: 9.0; Range: 8.5-10.1; Units: MG/DL; Status: F Test: AST/SGOT; Value: 18; Range: 15-37; Units: U/L; Status: F Test: ALT/SGPT; Value: 30; Range: 12-78; Units: U/L; Status: F Test: ALKALINE PHOSPHATASE; Value: 80; Range: 45-117; Units: U/L; Status: F Test: BILIRUBIN,TOTAL; Value: 0.3; Range: 0.2-1.0; Units: MG/DL; Status: F Test: TOTAL PROTEIN; Value: 8.0; Range: 6.4-8.2; Units: GM/DL; Status: F Test: ALBUMIN; Value: 3.6; Range: 3.2-5.2; Units: GM/DL; Status: F Test: ALBUMIN/GLOBULIN RATIO; Value: 0.82; Range: 1.00-1.93; Abnormal: Below low normal; Status: F Test Note: ; Units are mL/min/1.73 m2 Chronic Kidney Disease Staging per NKF: Stage I & II GFR >=60 Normal to Mildly Decreased Stage III GFR 30-59 Moderately Decreased Stage IV GFR 15-29 Severely Decreased Stage V GFR <15 Very Little GFR Left ESRD GFR <15 on CORRECTIONAL SUPERVISOR Lab Order: -Influenza A&B Rapid Antigen - Nose; SPEC'M 11/26/16 15:04 Test: INFLUENZA A RAPID SCR by ICA; Value: INFLUENZA A RESULTS NEGATIVE; Status: F Test: INFLUENZA A RAPID SCR by ICA; Value: Comments:; Status: F Test: INFLUENZA B RAPID SCR by ICA; Value: INFLUENZA B RESULTS NEGATIVE; Status: F Test Note: ; The Influenza test is a direct rapid immunoassay for the qualitative detection of Influenza viral antigen. Cell culture (Viral Culture) testing should be considered to confirm NEGATIVE results and to assist in detecting other viruses that can provide similar clinical symptoms. Please contact the lab within 24 hours ([phone]) if confirmatory testing is desired. Lab Order: UA; SPEC'M 11/26/16 13:55 Test: APPEARANCE, URINE; Value: CLEAR; Range: CLEAR; Status: F Test: COLOR, URINE; Value: YELLOW; Range: YELLOW; Status: F Test: PH,URINE; Value: 5.0; Range: 5.0-9.0; Units: UNITS; Status: F Test: SPECIFIC GRAVITY URINE AUTO; Value: 1.017; Range: 1.002-1.035; Status: F Test: PROTEIN, URINE AUTO; Value: NEGATIVE; Range: NEGATIVE; Units: mg/dL; Status: F Test: GLUCOSE, URINE (UA) AUTO; Value: NEGATIVE; Range: NEGATIVE; Units: mg/dL; Status: F Test: KETONE, URINE AUTO; Value: NEGATIVE; Range: NEGATIVE; Units: mg/dL; Status: F Test: UROBILINOGEN, URINE AUTO; Value: 0.2; Range: 0.0-2.0; Units: mg/dL; Status: F Test: BILIRUBIN, URINE AUTO; Value: NEGATIVE; Range: NEGATIVE; Status: F Test: NITRITE, URINE AUTO; Value: POSITIVE; Range: NEGATIVE; Status: F Test: LEUKOCYTE ESTERASE, URINE AUTO; Value: 3+; Range: NEGATIVE; Abnormal: Above high normal; Status: F Test: BLOOD, URINE BLOOD; Value: 1+; Range: NEGATIVE; Abnormal: Above high normal; Status: F Test: WBC, URINE AUTO; Value: 6; Range: 0-3; Abnormal: Above high normal; Units: /HPF; Status: F Test: RBC, URINE AUTO; Value: 3; Range: 0-3; Units: /HPF; Status: F Test: BACTERIA, URINE AUTO; Value: 1+; Range: NEGATIVE; Abnormal: Above high normal; Status: F Test: SQUAMOUS EPITHELIAL CELL UR AU; Value: 4; Range: 0-6; Units: /HPF; Status: F Test: MUCUS, URINE; Value: SMALL; Range: NEGATIVE; Status: F Test: HYALINE CAST, URINE AUTO; Value: 0; Range: 0-1; Units: /LPF; Status: F Test: AMORPHOUS SEDIMENT; Value: SMALL; Range: NEGATIVE; Abnormal: Above high normal; Status: F Lab Order: Urine Culture; SPEC'M 11/26/16 13:55 Test: URINE CULTURE; Value: <EXTERNAL COMMENT eCWMed> FULL REPORT IN LAB NOTES (eCW and Medent).; Status: F Test: URINE CULTURE; Value: ORGANISM 1: ESCHERICHIA COLI; Status: F Test: URINE CULTURE; Value: ESCHERICHIA COLI; Status: F Test: URINE CULTURE; Value: COLONY COUNT CFU/ml >100,000; Status: F Test: URINE CULTURE; Value: GRAM NEG SENSI - VITEK 80; Status: F Test: URINE CULTURE; Value: Method: VIT2; Status: F Test: URINE CULTURE; Value: EXTD BRD SPCTRM BETA LACTAMASE -; Status: F Test: URINE CULTURE; Value: TRIMETHOPRIM/SULFAMETHOXAZOLE >=320 R; Status: F Test: URINE CULTURE; Value: AMPICILLIN >=32 R; Status: F Test: URINE CULTURE; Value: GENTAMICIN <=1 S; Status: F Test: URINE CULTURE; Value: NITROFURANTOIN <=16 S; Status: F Test: URINE CULTURE; Value: CEFAZOLIN <=4 S; Status: F Test: URINE CULTURE; Value: LEVOFLOXACIN <=0.12 S; Status: F Test: URINE CULTURE; Value: TOBRAMYCIN <=1 S; Status: F Test: URINE CULTURE; Value: CEFTRIAXONE <=1 S; Status: F Test: URINE CULTURE; Value: CEFTAZIDIME <=1 S; Status: F Test: URINE CULTURE; Value: AMPICILLIN/SULBACTAM 16 I; Status: F Test: URINE CULTURE; Value: PIPERACILLIN/TAZOBACTAM <=4 S; Status: F Test: URINE CULTURE; Value: AZTREONAM <=1 S; Status: F Test: URINE CULTURE; Value: ERTAPENEM <=0.5 S; Status: F Test: URINE CULTURE; Value: MEROPENEM <=0.25 S; Status: F Test: URINE CULTURE; Value: TIGECYCLINE <=0.5 S; Status: F Test: URINE CULTURE; Value: CEFEPIME <=1 S; Status: F Lab Order: -Blood Culture; SPEC'M 11/26/16 15:04 Test: BLOOD CULTURE; Value: No growth after 24 hours . All specimens observed; Status: F Test: BLOOD CULTURE; Value: for 5 days. Results final at that time.; Status: F Test: BLOOD CULTURE; Value: No Growth after 48 hours. All Specimens observed; Status: F Test: BLOOD CULTURE; Value: for 7 days. Results final at that time.; Status: F Lab Order: Lactic Acid (Squires tube on ice); SPEC'M 11/26/16 15:04 Test: LACTIC ACID LEVEL, LACTATE; Value: 1.5; Range: 0.4-2.0; Units: MMOL/L; Status: F Lab Order: BLOOD CULTURES; SPEC'M 11/26/16 15:09 Test: BLOOD CULTURE; Value: No growth after 24 hours . All specimens observed; Status: F Test: BLOOD CULTURE; Value: for 5 days. Results final at that time.; Status: F Test: BLOOD CULTURE; Value: No Growth after 48 hours. All Specimens observed; Status: F Test: BLOOD CULTURE; Value: for 7 days. Results final at that time.; Status: F Lab Order: GATS (NEGATIVE STREP SCREEN); SPEC'M 11/26/16 15:04 Test: GATS CULTURE (NEG STREP SCR); Value: GATS RESULT NEGATIVE FOR STREP PYOGENES (GROUP A); Status: F Test: GATS CULTURE (NEG STREP SCR); Value: <EXTERNAL COMMENT eCWMed> FULL REPORT IN LAB NOTES (eCW and Medent).; Status: F Radiology Order: Ultrasound 1st Trimester Test: Ultrasound 1st Trimester REASON FOR EXAMINATION: Bleeding; EMERGENCY FIRST TRIMESTER OBSTETRIC SONOGRAPHY:; ; HISTORY: Vaginal bleeding. Cramping.; ; No comparison study.; ; FINDINGS: Transabdominal and transvaginal scanning are performed. Uterine; dimensions are 9.0 x 4.9 x 5.4 cm. The uterus is retroverted. There is a tiny; somewhat elongate 2.8 mm fluid structure in the endometrium. No normal; gestational sac is seen. A 2.8 mm mean sac size dimension would correlate with; a 6-czjg-3-day gestational age estimate. This is not likely to be a gestational; sac.; ; A normal right ovary is seen measuring 3.7 x 2.6 x 2.8 cm. Its Doppler flow is; normal with resistive index 0.42. Left ovary measures 3.9 x 2.5 x 3.5 cm. Its; Doppler flow is normal with resistive index 0.46. There is a 1.6 x 1.7 x 1.6 cm; hemorrhagic corpus luteum cyst in the left ovary. A trace of fluid is seen in; the cul-de-sac. No adnexal mass is seen. No sonographic evidence of; hemoperitoneum seen.; ; IMPRESSION: Nonspecific sonographic findings: No definite intrauterine; gestational sac. No adnexal mass or significant free fluid seen. Clinical and; possibly sonographic followup advised.; ; ; Signed by; Cody Aleman MD 11/26/2016 04:32 P; Outcome: 16:57 Discharge ordered by Provider. ef1 17:03 Discharge Assessment: Patient awake, alert and oriented x 3. No cognitive and/or srm functional deficits noted. Patient verbalized understanding of disposition instructions. patient administered narcotics - no. The following High Risk Discharge criteria are identified: None. Discharged to home ambulatory. Condition: good Condition: stable. Discharge instructions given to patient, Instructed on discharge instructions, follow up and referral plans. medication usage, Demonstrated understanding of instructions, medications, Pt was receptive of discharge instructions/ teaching. Prescriptions given X 3. Ultrasound Study completed. Property :Personal belongings accompany Pt. 17:04 Patient left the ED. srm 17:05 Patient left the ED. srm Signatures: Dispatcher [employer] EDMS Eva Cid, Stone Spreader Operator Unit deg Libra Amanda RN RN srm Peters, Mary, RN RN mcp Murphy, Jane, YVETTE CASINO ACCOUNTANT jam1 Nery Venegas, Farhad Reg gb Chela Jean Baptiste Erica, PA-C PA-C ef1 Radha Kaminski br3 Ally Dunbar, CASINO ACCOUNTANT CASINO ACCOUNTANT ct3 Susanna Fisher cmb Susan Cadena,ZOYA RN galend Bhavana Romo RN RN ms18 Milly Stratton, Reg Reg hs2 Chart Complete MTDD
--- NOTE | 2016-11-28 18:07 | EDDOCDS ---
Physician Documentation [facility] Name: Saundra Garcia Age: 26 yrs Sex: Female : 1990 Arrival Date: 11/26/2016 Time: 11:28 Bed I4 / M4 Private MD: Madalyn [facility] [place] Disposition: 11/26/16 16:57 Discharged to Home/Self Care. Impression: Encounter for test, result positive - HCG Serum Quantitative 382, no U/S evidence of , Urinary tract infection, site not specified, Other abnormal uterine and vaginal bleeding - Spotting. - Condition is Stable. - Discharge Instructions: Medicines During , and Urinary Tract Infection. - Prescriptions for Reglan 10 mg Oral Tablet - take 1 tablet by ORAL route every 6 hours take 30 minutes before meals and at bedtime; 20 tablet. Tylenol 325 mg Oral Tablet - take 2 tablets by ORAL route every 6 hours as needed; 30 tablet. Macrobid 100 mg Oral Capsule - take 100 milligram by ORAL route every 12 hours for 10 days; 20 capsule. - Medication Reconciliation, Local Pharmacy Hours form. - Follow up: [facility] [place]; When: 1 - 2 days; Reason: Further diagnostic work-up, Recheck today's complaints, Continuance of care. Follow up: Emergency Department; Reason: Worsening of conditions. - Problem is new. - Symptoms have improved. Historical: - Allergies: no known allergies; - Home Meds: 1. none - PMHx: none; - PSHx: ; - Social history: Smoking status: Patient states was never smoker of tobacco. No barriers to communication noted, The patient speaks fluent Icelandic, Speaks appropriately for age. - Family history: Not pertinent. - : The pt / caregiver states he / she is not on anticoagulants. Home medication list is obtained from the patient. - Exposure Risk Screening:: None identified. SPEECH WRITER: 11/26 11:39 2, Full Term 1, Living 1, LMP 09/27/2016 ead Vital Signs: 11:30 BP 155 / 73; Pulse 115; Resp 18; Temp 99.2(O); Pulse Ox 98% ; Weight 112.04 kg / 247.01 cmb lbs (M); Height 5 ft. 3 in. (160.02 cm); Pain 7/10; 16:59 BP 134 / 70; Pulse 94; Resp 18; Temp 98.7; Pulse Ox 100% ; Pain 0/10; jam1 11:30 Body Mass Index 43.75 (112.04 kg, 160.02 cm) cmb MDM: 11:49 Type & Screen Ordered. EDMS 11:49 Hcg, Serum Quantitative Ordered. EDMS 11:49 CBC Ordered. EDMS 13:43 CBC Reviewed. ef1 13:43 Type & Screen Reviewed. ef1 13:43 Hcg, Serum Quantitative Reviewed. ef1 13:52 IV Saline Lock ordered. ef1 13:52 NS 0.9% 1000 ml IV at bolus once ordered. ef1 13:52 Metoclopramide 10 mg IV at 40 mg/hr once over 15 mins ordered. ef1 13:52 Strep Screen, Nursing ordered. ef1 13:52 Obtain sample by nasopharyngeal swab ordered. ef1 13:52 Acetaminophen Tablet 975 mg PO once ordered. ef1 13:53 Complete Comphrensive Metabolic Ordered. EDMS 13:53 -Influenza A&B Rapid Antigen - Nose Ordered. EDMS 13:53 UA Ordered. EDMS 13:53 Urine Culture Ordered. EDMS 13:59 -Blood Culture (Adults Only), peripheral from different site, or from device/port/PICC ef1 etc. if present ordered. 14:00 Lactic Acid (Squires tube on ice) Ordered. EDMS 14:00 -Blood Culture Ordered. EDMS 14:00 Ultrasound 1st Trimester Ordered. EDMS 14:09 BLOOD CULTURES Ordered. EDMS 14:44 TRANSVAGINAL US Ordered. EDMS 14:44 DUPLEX SCAN LIMITED (DOPPLER) Ordered. EDMS 15:12 -Blood Culture (Adults Only), peripheral from different site, or from device/port/PICC srm etc. if present complete. 15:14 UA Reviewed. ef1 15:14 Type & Screen Reviewed. ef1 15:14 GATS (NEGATIVE STREP SCREEN) Ordered. EDMS 16:01 Financial registration complete. zo 16:16 [facility] Payment Agreement was scanned into [employer] and attached to record. zo 16:53 Complete Comphrensive Metabolic Reviewed. ef1 16:53 -Influenza A&B Rapid Antigen - Nose Reviewed. ef1 16:53 Lactic Acid (Squires tube on ice) Reviewed. ef1 16:53 Ultrasound 1st Trimester Reviewed. ef1 16:54 Nitrofurantoin 100 mg PO once ordered. ef1 01/25 03:21 T-Sheet-- Draft Copy was scanned into [employer] and attached to record. hs2 10:38 Radiology Report was scanned into [employer] and attached to record. gb 11/28 12:07 Lab / Xray Callback was scanned into [employer] and attached to record. deg Administered Medications: 11/26 15:22 Drug: Metoclopramide 10 mg [metoclopramide 5 mg/mL injection solution] Route: IV; Rate: srm 40 mg/hr; Infused Over: 15 mins; Site: right antecubital; 15:49 Follow up: IV Status: Completed infusion ms18 15:22 Drug: Acetaminophen 975 mg [acetaminophen 325 mg tablet (3 tabs)] Route: PO; srm 15:23 Drug: NS 0.9% 1000 ml [sodium chloride 0.9 % intravenous solution] Route: IV; Rate: srm bolus; Site: right antecubital; 17:05 Follow up: IV Status: Completed infusion srm 17:02 Drug: Nitrofurantoin 100 mg [nitrofurantoin macrocrystal 50 mg capsule (2 caps)] Route: srm PO; Signatures: Dispatcher [employer] EDMS Eva Cid, Post Tronic Machine Operator Unit deg Libra Amanda RN RN srm Nery Venegas, Reg Reg gb Chela Jean Baptiste Erica, PA-C PA-C ef1 Susan Cadena RN RN ead Stanton, Hillary, Reg Reg hs2 Bhavana Romo RN [id number] The chart was reviewed and I authenticate all verbal orders and agree with the evaluation and treatment provided.Corrections: (The following items were deleted from the chart) 14:02 13:53 US PELVIC NON-OB COMPLETE+US ordered. EDMS EDMS 14:02 13:53 DUPLEX SCAN LIMITED (DOPPLER)+US ordered. EDMS EDMS Attachments: 16:16 [facility] Payment Agreement zo 11/27 03:21 T-Sheet-- Draft Copy hs2 Chart Complete MTDD
== END 2016-11-26 17:03 | disposition home or self-care (01) ==
LOC: M ED 11:28
DX: N39.0 Urinary tract infection, site not specified (principal); Z32.01 Encounter for pregnancy test, result positive; N93.9 Abnormal uterine and vaginal bleeding, unspecified; R50.9 Fever, unspecified
CPT/HCPCS: 36415; 76801; 76817; 80053; 81001; 83605; 84702; 85027; 86850; 86900; 86901; 87040; 87088; 87186; 87804; 87880; 93976; 96361; 96365; 99284; J2765

== ENCOUNTER 2017-06-05 07:16 | Outpatient (CLI) | payer OTHER ==
[~2017-06-05] VITALS: Ht 160 cm; Wt 111.0 kg
[2017-06-05] MEDS ORDERED: PRENTAB9 PO (07:28)
[2017-06-05] MEDS ORDERED: LR 1,000 ML IV ONE (10:45)
[2017-06-05] MEDS ORDERED: LR 1,000 ML IV SCH (10:45)
--- NOTE | 2017-06-06 16:37 | HPE ---
DATE OF ADMISSION: 06/05/2017 HISTORY: A 26-year-old 2, para 1, who came in because of questionable urinary tract infection ( UTI). Was seen, but signed herself out against medical advice (AMA) as she had an emergency with her and her other child. Her risk factors is she has a history of preeclampsia although her labs preliminary were negative. She had a previous section for non-reassuring heart. She has a body mass index (BMI) over 40 and she is an A1 gestational diabetes mellitus (GDM) diabetic. Labs are AB positive, HIV negative hepatitis negative, RPR negative, rubella immune. Varicella immune. Urine is negative. One-hour glucose initially was 107. Her 28-week GTT was 170. Her 3-hour GTT followup was 187, 168 142. She is doing her fingersticks. The patient voided for us. She had an intravenous (IV) bolus of fluid and then she subsequently left. Her blood pressure was 125/59, respirations are 18, pulse 107 and temperature is 98.0. Urine was 1.018, pH seven. She had 1+ protein, 3+ blood, negative ketones, negative nitrates. We have a 26-year-old who is at 31 and five. Query urinary tract infection (UTI). Signed herself out as against medical advice (AMA).
== END 2017-06-05 11:34 | disposition left against medical advice (07) ==
LOC: M LDO 07:16
PROVIDERS: ATTEND Obstetrics & Gynecology
DX: O99.89 Other specified diseases and conditions complicating pregnancy, childbirth and the puerperium (principal); Z3A.31 31 weeks gestation of pregnancy; R10.9 Unspecified abdominal pain; O24.419 Gestational diabetes mellitus in pregnancy, unspecified control; O99.213 Obesity complicating pregnancy, third trimester

== ENCOUNTER 2017-07-03 12:10 | Outpatient (CLI) | payer OTHER ==
[~2017-07-03 12:10] MED LIST: PRENTAB9 PO
[2017-07-03] MEDS ORDERED: LR 1,000 ML IV SCH (12:30)
[2017-07-03] MEDS ORDERED: LR 1,000 ML IV ONE (12:30)
[2017-07-03 12:38] VITALS: BP 130/63
[2017-07-03 13:57] VITALS: BP 126/60
[2017-07-03 15:14] VITALS: BP 128/72
[2017-07-03] MEDS ORDERED: CALCIUM CARBONATE 500 MG CHEW U/D PO ONE (15:15)
[2017-07-03] MEDS: BETAMETHASONE SOLUSPAN 6MG/ML INJ 5ML (J0702) IM SCH (18:45)
[2017-07-03] MEDS: LR 1,000 ML IV SCH (18:45)
[2017-07-03] MEDS: FAMOTIDINE 20 MG TAB PO SCH (21:38)
[2017-07-04] MEDS: LR 1,000 ML IV SCH (01:49)
[2017-07-04 05:18] VITALS: BP 113/56
[2017-07-04] MEDS: FAMOTIDINE 20 MG TAB PO SCH ×2 (09:07→20:43)
[2017-07-04 14:00] VITALS: BP 119/58
[2017-07-04 18:24] VITALS: BP 120/56
[2017-07-04] MEDS: BETAMETHASONE SOLUSPAN 6MG/ML INJ 5ML (J0702) IM SCH (18:38)
[2017-07-04 22:00] VITALS: BP 117/54
[2017-07-05] MEDS: LR 1,000 ML IV SCH (03:00)
[2017-07-05 06:26] VITALS: BP 114/56
== END 2017-07-05 10:30 | disposition home or self-care (01) ==
LOC: M LDO 12:10 → M OBS 17:45 → M LDO 07-05 10:30
PROVIDERS: ATTEND Obstetrics & Gynecology
DX: O41.03X0 Oligohydramnios, third trimester, not applicable or unspecified (principal); Z3A.36 36 weeks gestation of pregnancy; O24.419 Gestational diabetes mellitus in pregnancy, unspecified control
CPT/HCPCS: 59025; 76815; 96365; 96366; 96372; J0702

== ENCOUNTER 2017-07-05 14:00 | Outpatient (CLI) | payer OTHER ==
[~2017-07-05] VITALS: Ht 160 cm; Wt 110.0 kg
[2017-07-05 14:47] VITALS: BP 129/63
== END 2017-07-05 15:45 | disposition home or self-care (01) ==
LOC: M LDO 14:00
PROVIDERS: ATTEND Obstetrics & Gynecology
DX: O36.8130 Decreased fetal movements, third trimester, not applicable or unspecified (principal); Z3A.36 36 weeks gestation of pregnancy

== ENCOUNTER 2017-07-11 12:12 | Outpatient (CLI) | payer OTHER ==
[~2017-07-11] VITALS: Ht 160 cm; Wt 108.0 kg
[2017-07-11 12:21] VITALS: BP 133/62
[2017-07-11 12:25] VITALS: BP 120/62
== END 2017-07-11 16:58 | disposition home or self-care (01) ==
LOC: M LDO 12:12
PROVIDERS: ATTEND Obstetrics & Gynecology
DX: O36.8930 Maternal care for other specified fetal problems, third trimester, not applicable or unspecified (principal); Z3A.37 37 weeks gestation of pregnancy

== ENCOUNTER 2017-07-18 12:07 | Inpatient (IN) | payer OTHER ==
[~2017-07-18] VITALS: Ht 160 cm; Wt 110.0 kg
[2017-07-18] MEDS ORDERED: NS 1,000 ML IV ONE (12:45)
[2017-07-18 15:42] VITALS: BP 116/68
[2017-07-18] MEDS ORDERED: LACTATED RINGER'S 1000 ML IV ONE (16:15)
[2017-07-18] MEDS ORDERED: LR 1,000 ML IV SCH ×2 (16:15→23:15)
[2017-07-18] MEDS ORDERED: AZITHROMYCIN INJ 500 MG, VIAL MATE ADAPTER 1 EACH in D5W 250 ML IV ONE (16:15)
[2017-07-18] MEDS ORDERED: BICITRA 30ML SOLN UDC PO ONE (16:15)
[2017-07-18] MEDS ORDERED: ACETAMINOPHEN 650 MG SUPP PR ONE (16:30)
[2017-07-18] MEDS ORDERED: BUPIVACAINE HCL 0.25% 10 ML VIAL SC ONE (16:30)
--- NOTE | 2017-07-18 16:40 | HPE ---
DATE OF ADMISSION: 07/18/2017 This lady is a 26-year-old 2, para 1, last menstrual period (LMP) 09/30/2016, estimated date of confinement (EDC) 08/01/2017 at 38 weeks gestation with a history of low amniotic fluid index (TRUE), previous section, pain in the scar area, GMDA1, discordant growth, head circumference at 8th percentile. She had a low TRUE 24 hours ago at the center. It was 5.1, and they recommended repeat. She was brought over to labor and delivery for hydration. A repeat low TRUE showed it was 4.5-4.7 and maximum and total in two quadrants. PAST HISTORY: In 2012 at 38 weeks section for nonreassuring heart, 7 pounds 4 ounces, and she had pre-eclampsia with induction of labor. Labs show AB positive, HIV negative, hepatitis negative, RPR negative, rubella immune, Varicella immune. Pap shows ASCUS HPV negative. Urine is negative. Gonorrhea and chlamydia are negative. One-hour glucose was 107 early and her 1-hour GTT at 28 weeks was 150. Her 3-hour glucose: 1-hour is 187, 2-hour is 168, and her 3-hour is 142. She was diet controlled and maintained blood sugars. She is group B streptococcus (GBS) negative. On examination today, no acute distress. She is complaining of low transverse pain over the scar area. Her blood pressure is 116/68, respirations are 18, pulse is 95, and temperature is 98.4. Urine is 1005, pH is 7, and all rest is negative. We discussed the risks and benefits of repeat section. At this point this lady is not a candidate for trial of labor after (TOLAC) because of the above risk factors. The non-stress test (NST) is reactive. In the 2 days she has had some persistent runs of tachycardia, 160-180s. Come down to 140. Presently it is at 140. After discussing the risks and benefits of section, including hemorrhage, infection, perforation, , reoperation, remote possibility of blood transfusion, remote possibility of hysterectomy, remote possibility of scarring into the fetus, and remote possibility of intensive care unit (NICU) admission for the fetus, signed and witnessed the consent form, and we will book at the appropriate interval.
[2017-07-18 16:43] LABS: MEAN CORPUSCULAR HEMOGLOBIN 26.9 pg (27.0-33.0); MEAN CORPUSCULAR HGB CONC 33.4 g/dl (32.0-36.5); MEAN CORPUSCULAR VOLUME 80.7 fl (80.0-96.0); WHITE BLOOD COUNT 15.1 K/mm3 (4.0-10.0)
[2017-07-18 17:06] VITALS: BP 132/78
[2017-07-18 18:03] VITALS: BP 121/66
[2017-07-18 19:50] VITALS: BP 124/68
[2017-07-18 20:52] VITALS: BP 133/70
[2017-07-18] MEDS ORDERED: NALOXONE INJ 0.4 MG/1 ML VIAL (J2310) IV PRN ×2 (21:49)
[2017-07-18] MEDS ORDERED: METOCLOPRAMIDE INJ 10MG/2ML VIAL (J2765) IV PRN (21:49)
[2017-07-18] MEDS ORDERED: ONDANSETRON 4MG/2ML VIAL (J2405) IV PRN ×2 (21:49→23:15)
[2017-07-18] MEDS ORDERED: MORPHINE PRES-FREE INJ 10 MG/10 ML VIAL (J2274) As Ordered ONE (22:04)
[2017-07-18] MEDS ORDERED: PHENYLephrine HCL 500 MCG/5 ML (100MCG/ML) SYRINGE (J2370) As Ordered ONE (22:04)
[2017-07-18] MEDS ORDERED: OXYTOCIN INJ 10 UNITS/ML VIAL (J2590) As Ordered ONE (22:04)
[2017-07-18] MEDS ORDERED: KETOROLAC 60 MG/2 ML VIAL (J1885) As Ordered ONE (22:23)
[2017-07-18 22:35] LABS: CORD GAS ABE A -2.6; CORD GAS PH A 7.283 UNITS; CORD GAS SBC A 21.3 MEQ/L; CORD GAS TCO2 A 26.6 MEQ/L
[2017-07-18 22:38] LABS: CORD GAS HCO3 V 23.7 MEQ/L; CORD GAS O2 SAT V 75.1 %; CORD GAS PCO2 V 43.8 mmHg; CORD GAS PH V 7.351 UNITS; CORD GAS PO2 V 30.9 mmHg; CORD GAS SBC V 22.3 MEQ/L
[2017-07-18] MEDS ORDERED: OXYTOCIN DRIP 30 UNITS in APPROPRIATE DILUENT 1 EA IV SCH (23:03)
[2017-07-18] MEDS ORDERED: OXYTOCIN INJ 10 UNITS/ML VIAL (J2590) IV ONE (23:15)
[2017-07-18] MEDS ORDERED: NALBUPHINE HCL 10 MG/ML AMP (J2300) IV PRN (23:15)
[2017-07-18] MEDS ORDERED: MEPERIDINE INJ 25 MG/ML VIAL (J2175) IV PRN (23:15)
[2017-07-18] MEDS ORDERED: RHOGAM 300 MCG (1500 IU) INJ (J2790) IM SCH (23:15)
[2017-07-18] MEDS ORDERED: fentaNYL 100 MCG/2 ML INJECTION (J3010) IV PRN (23:15)
[2017-07-18] MEDS ORDERED: METHYLERGONOVINE MALEATE 0.2 MG TAB PO PRN (23:15)
[2017-07-18] MEDS ORDERED: DOCUSATE SODIUM 100 MG CAP PO PRN (23:15)
[2017-07-18] MEDS ORDERED: ANUSOL HC CREAM 30GM TOP PRN (23:15)
[2017-07-18] MEDS ORDERED: MEASLES,MUMPS,RUBELLA VACCINE INJ (MMR-II) (90707) SC SCH (23:15)
[2017-07-18] MEDS ORDERED: MOM 30ML SUSPENSION UDC PO PRN (23:15)
[2017-07-18] MEDS ORDERED: OXYTOCIN 30 UNITS IN 0.9% NaCl 500ML IV BAG (J2590) As Ordered ONE (23:23)
[2017-07-19] VITALS (11 sets, daily range): BP systolic 110–130; BP diastolic 60–72
[2017-07-19] MEDS: NALBUPHINE HCL 10 MG/ML AMP (J2300) IV PRN ×3 (01:55→21:01)
[2017-07-19] MEDS: PERCOCET 5MG/325MG TAB PO PRN ×3 (04:11→21:01)
[2017-07-19 07:03] LABS: MEAN CORPUSCULAR HEMOGLOBIN 26.5 pg (27.0-33.0); MEAN CORPUSCULAR HGB CONC 32.8 g/dl (32.0-36.5); MEAN CORPUSCULAR VOLUME 80.9 fl (80.0-96.0)
[2017-07-19] MEDS: IBUPROFEN 800 MG TAB PO SCH ×3 (08:12→23:18)
[2017-07-19] MEDS: PRENATAL VITAMINS CHEWABLE TABLET PO SCH (08:12)
--- NOTE | 2017-07-19 09:57 | RO ---
DATE OF PROCEDURE: 07/18/2017 PREOPERATIVE DIAGNOSES: 38-week gestation, oligohydramnios, nonreassuring heart strip, previous section, head circumference at 8th percentile, failed 1-hour glucose tolerance test, occasional late decelerations. POSTOPERATIVE DIAGNOSES: 38-week gestation, oligohydramnios, nonreassuring heart strip, previous section, head circumference at 8th percentile, failed 1-hour glucose tolerance test, occasional late decelerations, plus uterine window, cord times one around the body and the ankle. OPERATION PROPOSED: Repeat section. OPERATION PERFORMED: Repeat section. ANESTHESIA: Spinal plus local anesthetic for intraperitoneal procedures. ESTIMATED BLOOD LOSS: 350 mL. SURGEON: Zion Dominguez MD DEBIT AGENT: Tory Munoz MD DESCRIPTION OF PROCEDURE: Under adequate anesthesia, prepped and draped in the supine position, Owens catheter in the bladder draining clear urine, acetaminophen suppository 1300 mg per rectum, sequentials on board, antibiotics appropriately covered, and time-out, and then a Pfannenstiel incision was made two fingerbreadths above the symphysis pubis passing through abdominal layers securing hemostasis. Opening peritoneal cavity, we noticed that there was a large uterine window in the middle of her incisional site. This is where she had been complaining of pain over the last 1-2 hours. We just basically digitally extended the incision site. There was no fluid to be seen. We delivered in the persistent occipitoposterior (POP) position, a livebirth female . Cord around the neck once and the ankle once. 3220 grams, 7 pounds 2 ounces. scores 8 and 9 at 1 and 5 minutes, respectfully. Arterial and venous pH were performed. Placenta was manually removed. Three-vessel cord, membranes, and tissues intact. Uterus contracted well down on Pitocin. The lower segment was oversewn in two layers, and reperitonealization was performed with instrument and pad count correct. We lavaged out the gutters, and the was closed, running stitch for the peritoneum, the same for the fascia, interrupted for subcutaneous. Marcaine 0.25% 10 mL for the skin and subcuticular stitch. [place] and Telfa were applied, and the patient was sent to recovery in good condition.
--- NOTE | 2017-07-19 20:18 | IPN ---
DATE: 07/19/2017 POSTOPERATIVE DAY ONE: This lady is a 26-year-old 2, now para 2, who was admitted initially because of oligohydramnios and persistent tachycardia with runs of occasional late decelerations in recovery. Her TRUE was 4.7 despite hydration with intravenous (IV) fluids, and the other issue is that she had a previous section. She had a non-reassuring heart for that one. She had an elevated one-hour glucose tolerance test (GTT) and she is now complaining of suprapubic pain. She had a repeat section for a live female infant 7 pounds 2 ounces 3320 grams, scores of 8 and 9 at one and five minutes respectively. Arterial pH was 7.20, base excess -2.6. Venous pH 7.35, base excess -2.0. Admitting hemoglobin was 10.3, hematocrit 30.9, platelets 216. Postoperative day one hemoglobin 9.9, hematocrit 30.3, platelets are 217. Her vital signs today, her blood pressure is 119/60, respirations 18, pulse 95, temperature 96.7. We discussed phlebitis, cystitis, mastitis, endometritis and cellulitis, diet, exercise, pain management, perineal, breast and wound care. She does not want any control at present time. She was given her medications for home dispensing and planning on discharge tomorrow morning.
[2017-07-20 05:43] VITALS: BP 123/60
[2017-07-20] MEDS: IBUPROFEN 800 MG TAB PO SCH (06:31)
[2017-07-20] MEDS ORDERED: INFLUENZA QUADRIVALENT PF VACCINE 0.5ML SYRINGE (90686) IM ONE (09:00)
[2017-07-20] MEDS: PERCOCET 5MG/325MG TAB PO PRN (09:37)
[2017-07-20] MEDS: PRENATAL VITAMINS CHEWABLE TABLET PO SCH (09:37)
[2017-07-20] MEDS ORDERED: OXYC1TAB23 PO ×2 (11:00)
[2017-07-20] MEDS ORDERED: COLA100C5 PO (11:00)
[2017-07-20] MEDS ORDERED: IBUP-1114 PO (11:00)
== END 2017-07-20 14:30 | disposition home or self-care (01) | DRG 766 ==
LOC: M LDO 12:07 → M LDI 16:33 → M OBS 07-19 00:28
PROVIDERS: ADMIT Obstetrics & Gynecology; ATTEND Obstetrics & Gynecology
PROC: 10D00Z1 Extraction of Products of Conception, Low, Open Approach (ICD-10-PCS; principal; 2017-07-18 22:08)
DX: O41.03X0 Oligohydramnios, third trimester, not applicable or unspecified (principal); Z3A.38 38 weeks gestation of pregnancy; O34.211 Maternal care for low transverse scar from previous cesarean delivery; O24.420 Gestational diabetes mellitus in childbirth, diet controlled; O76 Abnormality in fetal heart rate and rhythm complicating labor and delivery; O94 Sequelae of complication of pregnancy, childbirth, and the puerperium; O69.82X0 Labor and delivery complicated by other cord entanglement, without compression, not applicable or unspecified; O64.0XX0 Obstructed labor due to incomplete rotation of fetal head, not applicable or unspecified; Z37.0 Single live birth

== ENCOUNTER 2018-01-01 08:29 | Emergency (ER) | payer OTHER ==
[2018-01-01] MEDS: NS 1,000 ML IV (09:30)
[2018-01-01 10:28] LABS: AMORPHOUS SEDIMENT RFX SMALL (NEGATIVE); KETONE, URINE AUTO RFX NEGATIVE (NEGATIVE); MUCUS, URINE RFX SMALL (NEGATIVE); NITRITE, URINE AUTO RFX NEGATIVE (NEGATIVE); RBC, URINE AUTO RFX TNTC /HPF (0-3); SPECIFIC GRAVITY UR AUTO RFX 1.033 (1.002-1.035); SQUAM EPITHELIAL CELL UR AURFX 3 /HPF (0-6)
[2018-01-01 10:34] LABS: BASO % 0.2 % (0.0-1.0); EOS # 0.1 10^3/uL (0.0-0.50); EOS % 0.3 % (0.0-3.0); HEMATOCRIT 40.8 % (36.0-47.0); HEMOGLOBIN 12.8 g/dl (12.0-16.0); IMMATURE GRANULOCYTE % 0.3 % (0-3.0); LEUKOCYTE ESTERASE UR AUTO RFX 1+ (NEGATIVE); LYMPH # 1.8 10^3/uL (1.5-6.5); LYMPH % 12.2 % (24.0-44.0); MEAN CORPUSCULAR HGB CONC 31.4 g/dl (32.0-36.5); MEAN CORPUSCULAR VOLUME 79.7 fl (80.0-96.0); MONO # 1.1 10^3/uL (0.0-0.8); PLATELET COUNT, AUTOMATED 380 10^3/uL (150-450); RED BLOOD COUNT 5.12 10^6/uL (4.00-5.40); RED CELL DISTRIBUTION WIDTH 15.5 % (11.5-14.5); WBC, URINE AUTO RFX 18 /HPF (0-3)
[2018-01-01] MEDS: MORPHINE 2 MG/ML 1ML SYRINGE (J2270) IV (10:40)
[2018-01-01] MEDS: ONDANSETRON 4MG/2ML VIAL (J2405) IV (10:40)
[2018-01-01 10:50] LABS: ALBUMIN 3.9 GM/DL (3.2-5.2); ALBUMIN/GLOBULIN RATIO 0.85 (1.00-1.93); ALKALINE PHOSPHATASE 115 U/L (45-117); ALT/SGPT 50 U/L (12-78); AMYLASE 59 U/L (25-115); ANION GAP 6 MEQ/L (8-16); AST/SGOT 58 U/L (7-37); BILIRUBIN,DIRECT 0.1 MG/DL (0.0-0.2); BILIRUBIN,TOTAL 0.3 MG/DL (0.2-1.0); BLOOD UREA NITROGEN 14 MG/DL (7-18); CALCIUM LEVEL 9.4 MG/DL (8.5-10.1); CARBON DIOXIDE LEVEL 29 MEQ/L (21-32); CHLORIDE LEVEL 104 MEQ/L (98-107); CREATININE FOR GFR 0.85 MG/DL (0.55-1.30); GLOMERULAR FILTRATION RATE > 60.0 (>60); GLUCOSE, FASTING 93 MG/DL (70-100); LIPASE 157 U/L (73-393); POTASSIUM SERUM 4.6 MEQ/L (3.5-5.1); SODIUM LEVEL 139 MEQ/L (136-145); TOTAL PROTEIN 8.5 GM/DL (6.4-8.2)
== END 2018-01-01 14:04 | disposition home or self-care (01) ==
LOC: M ED 08:29
DX: K80.70 Calculus of gallbladder and bile duct without cholecystitis without obstruction (principal); K76.0 Fatty (change of) liver, not elsewhere classified; K21.9 Gastro-esophageal reflux disease without esophagitis; K82.9 Disease of gallbladder, unspecified; Z98.890 Other specified postprocedural states
CPT/HCPCS: J2405

== ENCOUNTER 2018-02-13 09:52 | Day surgery (SDC) | payer OTHER ==
[2018-02-13 10:33] LABS: CONTROL LINE UCG INT CTR LINE PRESENT; URINE PREG TEST NEGATIVE (NEGATIVE)
[2018-02-13] MEDS: LR 1,000 ML IV (10:38)
[2018-02-13] MEDS ORDERED: MIDAZOLAM INJ 2 MG/2 ML VIAL (J2250) As Ordered (11:20)
[2018-02-13] MEDS ORDERED: fentaNYL 100 MCG/2 ML INJECTION (J3010) As Ordered ×2 (11:21→13:15)
[2018-02-13] MEDS ORDERED: LIDOCAINE 2% INJ 100 MG/5 ML SDV (FOR ANES.) As Ordered (11:22)
[2018-02-13] MEDS ORDERED: PROPOFOL 200 MG/20 ML VIAL As Ordered ×2 (11:22→14:14)
[2018-02-13] MEDS ORDERED: ROCURONIUM BROMIDE 50 MG/5 ML VIAL As Ordered ×2 (11:23→13:58)
[2018-02-13] MEDS ORDERED: VECURONIUM BROMIDE 10 MG VIAL As Ordered (11:26)
[2018-02-13] MEDS ORDERED: SUGAMMADEX SODIUM 500 MG/5 ML VIAL (BRIDION) As Ordered (11:26)
[2018-02-13] MEDS ORDERED: LIDOCAINE 1% SDV INJ 30 ML VIAL As Ordered (12:32)
[2018-02-13] MEDS ORDERED: BUPIVACAINE HCL 0.25% 30 ML VIAL As Ordered (12:32)
[2018-02-13] MEDS ORDERED: KETOROLAC 60 MG/2 ML VIAL (J1885) As Ordered (13:10)
[2018-02-13] MEDS ORDERED: ONDANSETRON 4MG/2ML VIAL (J2405) As Ordered (13:10)
[2018-02-13] MEDS ORDERED: dexameTHASONE 4 MG/ML 1ML VIAL (J1100) As Ordered (13:10)
[2018-02-13] MEDS: CONRAY-60 60% 50ML VIAL (Q9961) As Ordered (13:30)
[2018-02-13] MEDS ORDERED: HYDROmorphone HCL 2 MG/ML 1ML VIAL (J1170) As Ordered (13:31)
[2018-02-13] MEDS ORDERED: LR 1,000 ML IV (15:00)
[2018-02-13] MEDS ORDERED: MORPHINE 10 MG/ML 1ML VIAL (J2270) IV (15:00)
[2018-02-13] MEDS ORDERED: ONDANSETRON 4MG/2ML VIAL (J2405) IV ×2 (15:00)
[2018-02-13] MEDS ORDERED: fentaNYL 100 MCG/2 ML INJECTION (J3010) IV (15:00)
[2018-02-13] MEDS ORDERED: METOCLOPRAMIDE INJ 10MG/2ML VIAL (J2765) IV (15:00)
[2018-02-13] MEDS ORDERED: NORCO, ANEXSIA 5/325MG TABLET (HYDROcodone/ACETAMINOPHEN) PO ×2 (15:00)
[2018-02-13] MEDS: PERCOCET 5MG/325MG TAB PO (15:10)
[2018-02-13] MEDS ORDERED: METOCLOPRAMIDE INJ 10MG/2ML VIAL (J2765) As Ordered (16:02)
[2018-02-13] MEDS ORDERED: KETOROLAC 30 MG/ML VIAL (J1885) IV (19:00)
== END 2018-02-13 16:56 | disposition home or self-care (01) ==
LOC: M SDC 09:52
DX: K80.12 Calculus of gallbladder with acute and chronic cholecystitis without obstruction (principal); E66.01 Morbid (severe) obesity due to excess calories
CPT/HCPCS: 47563